=== PATIENT | male | born 1990 | race Caucasian/White ===

== ENCOUNTER 2018-06-18 17:21 | Inpatient (IN) | payer OTHER, MEDICAID ==
[2018-06-18] MEDS ORDERED: Sodium Chloride 0.9% 1,000 ML IV STA (17:43)
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
[2018-06-18 18:13] LABS: BASO # 0.07 K/mm3 (0.0-2.0); BASO % 1.1 % (0.0-3.0); EOS # 0.1 (0.0-0.7); EOS % 1.6 % (1.5-5.0); GRAN # 4.01 (1.4-6.5); GRAN % 64.2 % (50.0-68.0); HEMOGLOBIN 13.5 g/dL (14.0-18.0); LYMPH # 1.6 (1.2-3.4); LYMPH % 25.9 % (22.0-35.0); MEAN CELL VOLUME 88.2 fl (80.0-105.0); MEAN CORPUSCULAR HEMOGLOBIN 29.6 pg (25.0-35.0); MEAN CORPUSCULAR HGB CONC 33.6 g/dl (31.0-37.0); MEAN PLATELET VOLUME 9.4 fl (7.0-11.0); MONO # 0.5 (0.1-0.6); MONO % 7.2 % (1.0-6.0); RBC 4.56 10^6/uL (3.5-6.1); RED CELL DISTRIBUTION WIDTH 13.6 % (11.5-14.5); WHITE BLOOD COUNT 6.3 10^3/uL (4.5-11.0)
[2018-06-18 18:27] LABS: ALB/GLOB RATIO 1.6 (1.1-1.8); ALBUMIN 4.4 g/dL (3.0-4.8); ALT/SGPT 26 U/L (7-56); AST/SGOT 27 U/L (17-59); BLOOD UREA NITROGEN 8 mg/dL (7-21); CALCIUM 8.8 mg/dL (8.4-10.5); GFR NON-AFRICAN AMERICAN > 60
[2018-06-18 18:28] LABS: ACETAMINOPHEN < 10.0 ug/ml (10.0-20.0); SALICYLATE < 1 mg/dL (2.0-20.0)
--- NOTE | 2018-06-18 19:23 | ED PDOC ---
Physical Exam Vital Signs Reviewed: Yes Vital Signs Temp Pulse Resp BP Pulse Ox 06/18/18 17:30 98.5 F 97 H 16 137/69 99 Temperature: Afebrile Blood Pressure: Normal Pulse: Tachycardic Respiratory Rate: Normal Appearance: Positive for: Well-Appearing, Non-Toxic, Comfortable Pain Distress: None Mental Status: Positive for: Alert and Oriented X 3 Medical Decision Making ED Course and Treatment: 06/18/18 19:13: Case endorsed to me by Dr. Giron. Patient presents to the emergency department for further evaluation s/p overdose. Pending CT and X-Ray, reassessment and disposition. EXAM: CT Head without Intravenous Contrast. Electronically signed on Jun 18, 2018 8:56:37 PM EST by: Marcelo Torrez M.D., IMPRESSION: No acute intracranial abnormality. 06/18/18 23:21 Patient was medically cleared seen and evaluated by FRANSISCO Mosquera.Following evaluation patient was accepted for admission to the psychiatric floor by . - Lab Interpretations Lab Results: 06/18/18 18:00 06/18/18 18:00 Lab Results 06/18/18 18:00: Alcohol, Quantitative < 10 06/18/18 18:00: Salicylates < 1 L, Acetaminophen < 10.0 L 06/18/18 18:00: Sodium 141, Potassium 3.9, Chloride 105, Carbon Dioxide 28, Anion Gap 12, BUN 8, Creatinine 0.9, Est GFR ( Amer) > 60, Est GFR (Non- Af Amer) > 60, Random Glucose 104, Calcium 8.8, Magnesium 2.0, Total Bilirubin 0.7, AST 27, ALT 26, Alkaline Phosphatase 53, Total Protein 7.2, Albumin 4.4, Globulin 2.8, Albumin/Globulin Ratio 1.6 06/18/18 18:00: WBC 6.3, RBC 4.56, Hgb 13.5 L, Hct 40.2 L, MCV 88.2, MCH 29.6, MCHC 33.6, RDW 13.6, Plt Count 276, MPV 9.4, Gran % 64.2, Lymph % (Auto) 25.9, [place] % (Auto) 7.2 H, Eos % (Auto) 1.6, Baso % (Auto) 1.1, Gran # 4.01, Lymph # (Auto) 1.6, [place] # (Auto) 0.5, Eos # (Auto) 0.1, Baso # (Auto) 0.07 06/18/18 18:00: Valproic Acid < 10 L - RAD Interpretation Radiology Orders: 06/18/18 17:42 HEAD W/O CONTRAST [CT] Stat LS SPINE AP/LAT [RAD] Stat - Medication Orders Current Medication Orders: Discontinued Medications Sodium Chloride (Sodium Chloride 0.9%) 1,000 mls @ 999 mls/hr IV .Q1H1M STA Stop: 06/18/18 18:43 Last Admin: 06/18/18 18:25 Dose: 999 mls/hr eMAR Start Stop Document 06/18/18 18:25 SRE (Rec: 06/18/18 18:25 SRE [id number]) Intravenous Solution Start Date 06/18/18 Start Time 18:25 End Date 06/18/18 End time 19:25 Total Infusion Time 60 Ondansetron HCl (Zofran Inj) 4 mg IVP STAT STA Stop: 06/18/18 17:44 Last Admin: 06/18/18 18:26 Dose: 4 mg IVP Administration Document 06/18/18 18:26 SRE (Rec: 06/18/18 18:26 SRE [id number]) Charges for Administration # of IVP Administrations 1 - Scribe Statement The provider has reviewed the documentation as recorded by the Sherriibe Alesha Mcallister Provider Scribe Attestation: All medical record entries made by the Scribe were at my direction and personally dictated by me. I have reviewed the chart and agree that the record accurately reflects my personal performance of the history, physical exam, medical decision making, and the department course for this patient. I have also personally directed, reviewed, and agree with the discharge instructions and disposition. Disposition/Present on Arrival - Present on Arrival Any Indicators Present on Arrival: No History of DVT/PE: No History of Uncontrolled Diabetes: No Urinary Catheter: No History of Decub. Ulcer: No History Surgical Site Infection Following: None - Disposition Have Diagnosis and Disposition been Completed?: Yes Diagnosis: Schizophrenia, Opiate abuse, continuous Disposition: HOSPITALIZED Disposition Time: 23:21 Patient Plan: Admission Condition: STABLE Forms: [employer] (Georgian)
[2018-06-18 22:04] LABS: PH,URINE 7.5 (4.7-8.0); URINE BILIRUBIN NEGATIVE (NEGATIVE); URINE BLOOD NEGATIVE (NEGATIVE); URINE GLUCOSE (UA) NEGATIVE (NEGATIVE); URINE LEUKOCYTE ESTERASE NEGATIVE Leu/uL (NEGATIVE); URINE PROTEIN NEGATIVE mg/dL (<30 mg/dL); URINE UROBILINOGEN 0.2 E.U./dL (<1 E.U./dL)
[2018-06-18 22:15] LABS: URINE APPEARANCE CLEAR (CLEAR); URINE COLOR YELLOW (YELLOW)
[2018-06-18 22:34] LABS: BARBITURATES, UR NEGATIVE (NEGATIVE); BENZODIAZEPINES, UR NEGATIVE (NEGATIVE); OPIATES, UR POSITIVE (NEGATIVE); PHENCYCLIDINE, UR NEGATIVE (NEGATIVE)
--- NOTE | 2018-06-19 00:14 | CARD ---
APPROVED REPORT Date of service: 06/18/2018 EKG Measurement Heart [id number] <Conclusion> Normal sinus rhythm Normal Electrocardiogram
[2018-06-19] MEDS ORDERED: Alum-Mag Hydrox-Simethicone Susp (30 mL) PO PRN (01:41)
[2018-06-19] MEDS ORDERED: Magnesium Hydroxide Susp 30 ml UD PO PRN (01:41)
[2018-06-19 02:18] VITALS: O2SAT 99
--- NOTE | 2018-06-19 02:53 | PCM.BM ---
<Ivan Castillo - Last Filed: 06/19/18 02:51> Treatment Plan Problems - Problems identified on initial assessmt Hopelessness/Helplessness Date Initiated: 06/19/18 Time Initiated: 02:52 Assessment reference: NA Status: Active Feelings of Worthlessness Date Initiated: 06/19/18 Time Initiated: 02:52 Assessment reference: NA Status: Active Ineffective Coping Date Initiated: 06/19/18 Time Initiated: 02:52 Assessment reference: NA Status: Active Medication Nonadherence Date Initiated: 06/19/18 Time Initiated: 02:52 Assessment reference: NA Status: Active Treatment assets and liabiliti Patient Assests: cooperative, self-reliant, ADL independent, physically healthy, good support system, negotiates basic needs, cognitively intact Patient Liabilities: financial problems, poor support system, relationship conflicts, substance abuse - Milieu Protocol Maintain good personal hygiene: daily Encourage regular showers, daily Remind patient to perform daily oral care, daily Assist patient to perform ADL's Conduct patient checks and document Observation sheet: Q15 minutes Maintain personal safety: every shift Educate patient to report safety concerns to staff, every shift Monitor environment for contraband/sharps Medication safety: Monitor for expected outcome, potential side effects: every shift, Assess barriers to learning: every shift, Assess readiness for medication education: every shift Discharge/Continuing Care - Education Needs Education Needs: Patient Medication, Patient Diagnosis/Disease Process, Patient Coping Skills, Patient Community resources, Patient Activities of Daily Living, Patient Nutrition, Patient Health Practices/Safety, Patient Personal Hygiene/Grooming, Patient Aftercare Safety Plan - Discharge Discharge Criteria: Tolerates medication w/o severe side effects, Free of Suicidal thoughts, Normal sleep pattern, Ability to care for self, No longer exhibiting s/s of withdrawal, Reduction of target symptoms <aLtosha Ambrosio - Last Filed: 06/19/18 14:09> - Diagnosis (1) Opiate abuse, continuous Status: Acute Interventions: 06/19/18 14:09 Monitoring withdrawal symptoms Medical detoxification Pharmacotherapy for alcohol/benzos/opioid dependence Maintaining sobriety Relapse prevention Possible rehabilitation Motivational interviewing 12-step programs: AA meetings (2) Schizophrenia Status: Acute Interventions: 06/19/18 14:09 Psychoeducation/psychotherapy Psychopharmacology/adjustment of medications as needed/ monitoring possible side effects Evaluate pt on daily basis Compliance with medications and follow up appointments Long acting medication if pt is noncompliant with pill form Suicide and homicide risk assessment and prevention, coping strategies, safety plan Relapse prevention Reduction of symptoms Improve functional status Possible assertive community treatment Cognitive behavioral therapy Family involvement Possible social skill training as outpatient
[2018-06-19 08:05] LABS: GLUCOSE,FASTING 94 mg/dL (65-110); HDL CHOLESTEROL 46 mg/dL (29-60)
[2018-06-19 08:15] LABS: LDL CHOLESTEROL 63 mg/dL (0-129)
--- NOTE | 2018-06-19 09:38 | RAD ---
Date of service: 06/19/2018 HISTORY: pysch COMPARISON: No prior. FINDINGS: LUNGS: No active pulmonary disease. PLEURA: No significant pleural effusion identified, no pneumothorax apparent. CARDIOVASCULAR: No aortic atherosclerotic calcification present. Normal cardiac size. No pulmonary vascular congestion. OSSEOUS STRUCTURES: No significant abnormalities. VISUALIZED UPPER ABDOMEN: Normal. OTHER FINDINGS: None. IMPRESSION: No active disease.
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
--- NOTE | 2018-06-19 14:09 | PCM.PSYCH ---
Initial Psychiatric Evaluation - Initial Psychiatric Evaluation Type of Admission: Voluntary Legal Status: Capacity (Patient has capacity to consent for treatment) Chief Complaint (in patient's own words): "I was very depressed, I am hearing my mothers voices, she told me that I need to find a job, I came here because of [place]..." Patient's Reaction to Hospitalization: Patient was admitted to the psychiatric inpatient evaluation and stabilization of possible depressive symptoms, questionable overdose on opioids, possible psychosis History of Present Illness and Precipitating Events: Shortly pt is a 27 y/o [place] Male, unemployed, lives with mother, pt was transported to ED via EMS and [place] [employer], as per report pt was found unconscious after he OD on opioid, pt has one psych admission at [facility] over this summer, pt was diagnosed with schizophrenia. pt most likely was noncompliant with meds, patient evaluation and stabilization and medication adjustments. Patient was seen today at the treatment team meeting, patient presented to have poor personal hygiene, has long/wavy/uncombed hair, patient appears to be unkempt, not shaved, has long/ nails, very thin build, multiple tattoos on upper extremities, but patient is not malodorous. Fair ADLs. Patient presented to be withdrawn, flat affect, thought blocking, patient presented to be weird/odd, possible negative symptoms of schizophrenia cannot be excluded. Patient presented with some psychomotor retardation, difficulties to express himself, patient reported that he was feeling depressed, hopeless and helpless, patient denied any thoughts of harming himself or others, but this production underwriter not sure if pt intentionally overdosed on heroin. pt seems to be an unreliable historian, patient reported that he hears his mother voices in his head, "it is positive voices, she is telling me to find a job". Patient denied history of command type hallucinations, patient presented to be guarded and mildly paranoid. Patient reported that he snorted heroin only once prior to come to the hospital, denied using any substances, denies smoking, denied using any illicit drugs, denied using alcohol. Patient denied being abused, denied physical/emotional/sexual abuse. Past psychiatric history: Patient was admitted at [facility] in December 2017, patient presented to be psychotic, with bizarre behavior, patient was diagnosed with schizophrenia, patient had disorganized behavior for example patient had given away all of his clothing to [employer], removed the doors on his room, presented to be psychotic talking to himself, responding to internal stimuli. Patient was stabilized on Prolixin, trazodone, Depakote and Cogentin. Patient denied history of suicidal attempts in the past, contracted for safety. Medical history: As per history patient has vitamin D deficiency, patient appears to be malnourished, very thin build. Family history: Patient denies any family history of mental illness. Social history: Patient does not work, self isolating, quit college. 06/18/18 18:00 06/18/18 18:00 Lab Results 06/19/18 07:30: TSH 3rd Generation 2.41 06/19/18 07:30: Fasting Glucose 94, Triglycerides 105, Cholesterol 120 L, LDL Cholesterol Direct 63, HDL Cholesterol 46 06/18/18 21:53: Urine Opiates Screen Positive H, Urine Methadone Screen Negative, Ur Barbiturates Screen Negative, Ur Phencyclidine Scrn Negative, Ur Amphetamines Screen Negative, U Benzodiazepines Scrn Negative, U Oth Cocaine Metabols Negative, U Cannabinoids Screen Positive H 06/18/18 21:53: Urine Color Yellow, Urine Appearance Clear, Urine pH 7.5, Ur Specific Delta 1.015, Urine Protein Negative, Urine Glucose (UA) Negative, Urine Ketones Negative, Urine Blood Negative, Urine Nitrate Negative, Urine Bilirubin Negative, Urine Urobilinogen 0.2, Ur Leukocyte Esterase Negative 06/18/18 18:00: Alcohol, Quantitative < 10 06/18/18 18:00: Salicylates < 1 L, Acetaminophen < 10.0 L 06/18/18 18:00: Sodium 141, Potassium 3.9, Chloride 105, Carbon Dioxide 28, Anion Gap 12, BUN 8, Creatinine 0.9, Est GFR ( Amer) > 60, Est GFR (Non- Af Amer) > 60, Random Glucose 104, Calcium 8.8, Magnesium 2.0, Total Bilirubin 0.7, AST 27, ALT 26, Alkaline Phosphatase 53, Total Protein 7.2, Albumin 4.4, Globulin 2.8, Albumin/Globulin Ratio 1.6 06/18/18 18:00: WBC 6.3, RBC 4.56, Hgb 13.5 L, Hct 40.2 L, MCV 88.2, MCH 29.6, MCHC 33.6, RDW 13.6, Plt Count 276, MPV 9.4, Gran % 64.2, Lymph % (Auto) 25.9, Bracken % (Auto) 7.2 H, Eos % (Auto) 1.6, Baso % (Auto) 1.1, Gran # 4.01, Lymph # (Auto) 1.6, Bracken # (Auto) 0.5, Eos # (Auto) 0.1, Baso # (Auto) 0.07 06/18/18 18:00: Valproic Acid < 10 L Vital Signs Temp Pulse Resp BP Pulse Ox 06/19/18 07:10 98.0 F 92 H 20 108/58 L 06/19/18 01:20 97.4 F L 61 18 129/79 99 06/18/18 21:33 80 18 124/74 96 06/18/18 17:30 98.5 F 97 H 16 137/69 99 The patient failed the outpatient lower level of care: Yes Current Medications: Active Medications Generic Name Dose Route Start Last Admin Trade Name Freq PRN Reason Stop Dose Admin Acetaminophen 650 mg 06/19/18 01:41 Tylenol 325mg Tab PO Q6H PRN Fever >100.4 F Al Hydrox/Mg Hydrox/Simethicone 30 ml 06/19/18 01:41 Maalox Plus 30 Ml PO DAILY PRN Upset Stomach Clonidine HCl 0.1 mg 06/19/18 02:01 Catapres PO Q12 PRN opiate withdrawals Magnesium Hydroxide 30 ml 06/19/18 01:41 Milk Of Magnesia PO DAILY PRN Constipation Paroxetine HCl 10 mg 06/19/18 22:00 Paxil PO HS [facility] Risperidone 0.5 mg 06/19/18 22:00 Risperdal Tab PO HS [facility] Protocol Zaleplon 10 mg 06/19/18 01:46 Sonata PO HS PRN Insomnia Present on Admission - Present on Admission Any Indicators Present on Admission: No Review of Systems - Review of Systems Systems not reviewed;Unavailable: Acuity of Condition - Constitutional Constitutional: As Per HPI - EENT Eyes: As Per HPI Ears: As Per HPI Nose/Mouth/Throat: As Per HPI - Cardiovascular Cardiovascular: As Per HPI - Respiratory Respiratory: As Per HPI - Gastrointestinal Gastrointestinal: As Per HPI - Genitourinary Genitourinary: As Per HPI - Reproductive: Male Reproductive:Male: As Per HPI - Musculoskeletal Musculoskeletal: As Per HPI - Integumentary Integumentary: As Per HPI - Neurological Neurological: As Per HPI - Psychiatric Psychiatric: As Per HPI - Endocrine Endocrine: As Per HPI - Hematologic/Lymphatic Hematologic: As Per HPI Past Patient History - Past Psychiatric History Previous Treatment History: Inpatient Prior Professional Help: See HPI Prior Psychiatric Treatment: See HPI At what hospital: See HPI Duration: See HPI Nature of Treatment: See HPI Explanation of prior treatment: See HPI - PSYCHIATRIC Hx Substance Use: Yes - Infectious Disease Hx of Infectious Diseases: None - CARDIAC Hx Cardiac Disorders: No Hx Hypertension: Yes (mother suffers from HBP) - PULMONARY Hx Tuberculosis: No - NEUROLOGICAL HX Cerebrovascular Accident: No Hx Seizures: No - HEENT Hx HEENT Problems: No - RENAL Hx Chronic Kidney Disease: No - ENDOCRINE/METABOLIC Hx Endocrine Disorders: No - HEMATOLOGICAL/ONCOLOGICAL Hx Cancer: No Hx Human Immunodeficiency Virus (HIV): No - INTEGUMENTARY Hx Dermatological Problems: No - MUSCULOSKELETAL/RHEUMATOLOGICAL Hx Musculoskeletal Disorders: No - GASTROINTESTINAL Hx Gastrointestinal Disorders: No - GENITOURINARY/GYNECOLOGICAL Hx Sexually Transmitted Disorders: No - SURGICAL HISTORY Hx Surgeries: No - ANESTHESIA Hx Anesthesia: No - Medical/Surgical History Reviewed & confirmed: by sc Meds Allergies/Adverse Reactions: Allergies Allergy/AdvReac Type Severity Reaction Status Date / Time No Known Allergies Allergy Verified 06/19/18 02:18 Mental Status Examination - Personal Presentation Personal Presentation: Looks stated age - Affect Affect: Constricted - Motor Activity Motor Activity: Psychomotor Retardation - Reliability in Providing Information Reliability in Providing Information: Poor, due to alteration in thoughts, Poor, due to altered mood, Poor, due to cognitve impairment - Speech Speech: Disorganized - Mood Mood: Depressed - Formal Thought Process Formal Thought Process: Hallucinations, Other (Thought blocking) - Hallucinations/Delusions Hallucinations: Auditory - Obsessions/Compulsions Obsessions: None Compulsions: None - Cognitive Functions Orientation: Person, Place, Situation Sensorium: Alert Attention/Concentration: Easily distracted Abstract Thinking: [place] Estimate of Intelligence: Average Judgement: Intact, as evidence by: Insight regarding need for hospitalization - Risk Risk: Self-mutilation, Diminished functioning - Strength & Assets Inventory Strength & Assets Inventory: Family support, Cooperative - Limitations Limitations: Other (Substance abuse, psychosis, noncompliance) Psychiatric Physical Exam - Physical Exam Reviewed and confirmed: Emergency Department Physical Exam Results - Vital Signs Recent Vital Signs: Last Vital Signs Temp 98.0 F 06/19/18 07:10 Pulse 92 H 06/19/18 07:10 Resp 20 06/19/18 07:10 BP 108/58 L 06/19/18 07:10 Pulse Ox 99 06/19/18 01:20 - Labs Result Diagrams: 06/18/18 18:00 06/18/18 18:00 Labs: Laboratory Results - last 24 hr 06/18/18 06/18/18 06/18/18 18:00 18:00 18:00 WBC 6.3 RBC 4.56 Hgb 13.5 L Hct 40.2 L MCV 88.2 MCH 29.6 MCHC 33.6 RDW 13.6 Plt Count 276 MPV 9.4 Gran % 64.2 Lymph % (Auto) 25.9 Bracken % (Auto) 7.2 H Eos % (Auto) 1.6 Baso % (Auto) 1.1 Gran # 4.01 Lymph # (Auto) 1.6 Bracken # (Auto) 0.5 Eos # (Auto) 0.1 Baso # (Auto) 0.07 Sodium 141 Potassium 3.9 Chloride 105 Carbon Dioxide 28 Anion Gap 12 BUN 8 Creatinine 0.9 Est GFR ( Amer) > 60 Est GFR (Non-Af Amer) > 60 Random Glucose 104 Fasting Glucose Calcium 8.8 Magnesium 2.0 Total Bilirubin 0.7 AST 27 ALT 26 Alkaline Phosphatase 53 Total Protein 7.2 Albumin 4.4 Globulin 2.8 Albumin/Globulin Ratio 1.6 Triglycerides Cholesterol LDL Cholesterol Direct HDL Cholesterol TSH 3rd Generation Urine Color Urine Appearance Urine pH Ur Specific Delta Urine Protein Urine Glucose (UA) Urine Ketones Urine Blood Urine Nitrate Urine Bilirubin Urine Urobilinogen Ur Leukocyte Esterase Salicylates Urine Opiates Screen Urine Methadone Screen Acetaminophen Ur Barbiturates Screen Valproic Acid < 10 L Ur Phencyclidine Scrn Ur Amphetamines Screen U Benzodiazepines Scrn U Oth Cocaine Metabols U Cannabinoids Screen Alcohol, Quantitative 06/18/18 06/18/18 06/18/18 18:00 18:00 21:53 WBC RBC Hgb Hct MCV MCH MCHC RDW Plt Count MPV Gran % Lymph % (Auto) Bracken % (Auto) Eos % (Auto) Baso % (Auto) Gran # Lymph # (Auto) Bracken # (Auto) Eos # (Auto) Baso # (Auto) Sodium Potassium Chloride Carbon Dioxide Anion Gap BUN Creatinine Est GFR ( Amer) Est GFR (Non-Af Amer) Random Glucose Fasting Glucose Calcium Magnesium Total Bilirubin AST ALT Alkaline Phosphatase Total Protein Albumin Globulin Albumin/Globulin Ratio Triglycerides Cholesterol LDL Cholesterol Direct HDL Cholesterol TSH 3rd Generation Urine Color Yellow Urine Appearance Clear Urine pH 7.5 Ur Specific Delta 1.015 Urine Protein Negative Urine Glucose (UA) Negative Urine Ketones Negative Urine Blood Negative Urine Nitrate Negative Urine Bilirubin Negative Urine Urobilinogen 0.2 Ur Leukocyte Esterase Negative Salicylates < 1 L Urine Opiates Screen Urine Methadone Screen Acetaminophen < 10.0 L Ur Barbiturates Screen Valproic Acid Ur Phencyclidine Scrn Ur Amphetamines Screen U Benzodiazepines Scrn U Oth Cocaine Metabols U Cannabinoids Screen Alcohol, Quantitative < 10 06/18/18 06/19/18 06/19/18 21:53 07:30 07:30 WBC RBC Hgb Hct MCV MCH MCHC RDW Plt Count MPV Gran % Lymph % (Auto) Bracken % (Auto) Eos % (Auto) Baso % (Auto) Gran # Lymph # (Auto) Bracken # (Auto) Eos # (Auto) Baso # (Auto) Sodium Potassium Chloride Carbon Dioxide Anion Gap BUN Creatinine Est GFR ( Amer) Est GFR (Non-Af Amer) Random Glucose Fasting Glucose 94 Calcium Magnesium Total Bilirubin AST ALT Alkaline Phosphatase Total Protein Albumin Globulin Albumin/Globulin Ratio Triglycerides 105 Cholesterol 120 L LDL Cholesterol Direct 63 HDL Cholesterol 46 TSH 3rd Generation 2.41 Urine Color Urine Appearance Urine pH Ur Specific Delta Urine Protein Urine Glucose (UA) Urine Ketones Urine Blood Urine Nitrate Urine Bilirubin Urine Urobilinogen Ur Leukocyte Esterase Salicylates Urine Opiates Screen Positive H Urine Methadone Screen Negative Acetaminophen Ur Barbiturates Screen Negative Valproic Acid Ur Phencyclidine Scrn Negative Ur Amphetamines Screen Negative U Benzodiazepines Scrn Negative U Oth Cocaine Metabols Negative U Cannabinoids Screen Positive H Alcohol, Quantitative - EKG Data EKG Interpreted by: ER Physician EKG shows normal: Sinus rhythm Rate: Normal DSM Plan - DSM 5 DSM 5 Diagnosis: As per history of schizophrenia rule out schizoaffective disorder rule out opioid abuse - Recommended/Plan of Treatment Treatment Recommendations and Plan of Treatment: Milieu/structure/supportive therapy Medical consult will be called SW consultation for discharge plan and social issues Med management Risperdal 1 mg twice a day for psychosis with plan to give injectable form Cogentin 0.5 mg twice a day for EPS prevention Follow-up as needed for insomnia Paxil 10 mg at the nighttime for depression and anxiety Family involvement Follow up on labs Will monitor closely Pt was educated about risk/benefits and alternatives of medications, coping strategies (safety plan, suicide prevention), relapse prevention, importance of follow up with psychiatrist and therapist, stay away from drugs/alcohol/smoking Projected ELOS: 7 days Prognosis: Guarded Discharge Plan and Discharge Criteria: Pt will be not depressed or manic, will be more hopeful, will be not psychotic or anxious, will be not having thoughts of harming self or others, will be tolerating medications well, will not have major side effects, will be able to function, will not pose threat to self or others. - Tobacco Cessation Tobacco Use Status for the last 30 days: Non User Tobacco Use Treatment Practical Counseling Provided: No Reason for not providing: Denied smoking Tobacco Use Treatment FDA-Approved Cessation Medication Provided: No - Alcohol or Substance Abuse Does the patient have an Alcohol or Substance Abuse Disorder: Yes Initial Psych Certification - Initial Certification I certify that the inpatient psychiatric facility admission was medically necessary for either: Treatment which could reasonbly be expected to improve pt's condition I estimate of hospitalization is necessary for proper treatment of the patient: 7 Unit of Time: Days My plans for post-hospital care for this patient are: Day treatment program, dual diagnosis program.
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
--- NOTE | 2018-06-20 14:52 | PCM.PYCHPN ---
Psychiatric Progress Note - Psychiatric Progress Note Patient seen today, length of contact: 30 minutes Patient Chief Complaint: "I am fine" Problems Identified/Issues Discussed: Suicide/ homicide prevention, past psychiatric h/o, current psychiatric symptoms, medical problems, risk/benefits and alternatives of medications, medications compliance, coping strategies, substance abuse h/o, relapse prevention, importance of follow up with psychiatrist and therapist, discharge plan. Medical Problems: Patient seems to be malnourished, very thin build Diagnostic Results: 06/18/18 18:00 06/18/18 18:00 Lab Results 06/19/18 07:30: RPR Nonreactive 06/19/18 07:30: TSH 3rd Generation 2.41 06/19/18 07:30: Fasting Glucose 94, Triglycerides 105, Cholesterol 120 L, LDL Cholesterol Direct 63, HDL Cholesterol 46 06/18/18 21:53: Urine Opiates Screen Positive H, Urine Methadone Screen Negative, Ur Barbiturates Screen Negative, Ur Phencyclidine Scrn Negative, Ur Amphetamines Screen Negative, U Benzodiazepines Scrn Negative, U Oth Cocaine Metabols Negative, U Cannabinoids Screen Positive H 06/18/18 21:53: Urine Color Yellow, Urine Appearance Clear, Urine pH 7.5, Ur Specific [place] 1.015, Urine Protein Negative, Urine Glucose (UA) Negative, Urine Ketones Negative, Urine Blood Negative, Urine Nitrate Negative, Urine Bilirubin Negative, Urine Urobilinogen 0.2, Ur Leukocyte Esterase Negative 06/18/18 18:00: Alcohol, Quantitative < 10 06/18/18 18:00: Salicylates < 1 L, Acetaminophen < 10.0 L 06/18/18 18:00: Sodium 141, Potassium 3.9, Chloride 105, Carbon Dioxide 28, Anion Gap 12, BUN 8, Creatinine 0.9, Est GFR ( Amer) > 60, Est GFR (Non- Af Amer) > 60, Random Glucose 104, Calcium 8.8, Magnesium 2.0, Total Bilirubin 0.7, AST 27, ALT 26, Alkaline Phosphatase 53, Total Protein 7.2, Albumin 4.4, Globulin 2.8, Albumin/Globulin Ratio 1.6 06/18/18 18:00: WBC 6.3, RBC 4.56, Hgb 13.5 L, Hct 40.2 L, MCV 88.2, MCH 29.6, MCHC 33.6, RDW 13.6, Plt Count 276, MPV 9.4, Gran % 64.2, Lymph % (Auto) 25.9, [place] % (Auto) 7.2 H, Eos % (Auto) 1.6, Baso % (Auto) 1.1, Gran # 4.01, Lymph # (Auto) 1.6, [place] # (Auto) 0.5, Eos # (Auto) 0.1, Baso # (Auto) 0.07 06/18/18 18:00: Valproic Acid < 10 L Vital Signs Temp Pulse Resp BP Pulse Ox 06/20/18 07:26 98.4 F 54 L 16 94/54 L 06/19/18 16:00 58 L 93/48 L 06/19/18 07:10 98.0 F 92 H 20 108/58 L 06/19/18 01:20 97.4 F L 61 18 129/79 99 06/18/18 21:33 80 18 124/74 96 06/18/18 17:30 98.5 F 97 H 16 137/69 99 DSM 5 Symptoms Update: Shortly pt is a 27 y/o Male, unemployed, lives with mother, pt was transported to ED via EMS and [place] [employer], as per report pt was found unconscious after he OD on opioid, pt has one psych admission at [facility] over this summer, pt was diagnosed with schizophrenia. pt most likely was noncompliant with meds, patient evaluation and stabilization and medication adjustments. Patient was seen today at the treatment team meeting, patient presented to have poor personal hygiene, has long/wavy/uncombed hair, patient appears to be unkempt, not shaved, has long/ nails, very thin build, multiple tattoos on upper extremities, but patient is not malodorous. Fair ADLs. Patient presented to be withdrawn, flat affect, thought blocking, patient presented to be weird/odd, possible negative symptoms of schizophrenia cannot be excluded. Patient presented with some psychomotor retardation, difficulties to express himself, patient reported that he was feeling depressed, hopeless and h elpless, patient denied any thoughts of harming himself or others, but this health underwriter not sure if pt intentionally overdosed on heroin. pt seems to be an unreliable historian, patient reported that he hears his mother voices in his head, "it is positive voices, she is telling me to find a job". Patient denied history of command type hallucinations, patient presented to be guarded and mildly paranoid. Patient reported that he snorted heroin only once prior to come to the hospital, denied using any substances, denies smoking, denied using any illicit drugs, denied using alcohol. Patient denied being abused, denied physical/emotional/sexual abuse. Past psychiatric history: Patient was admitted at [facility] in December 2017, patient presented to be psychotic, with bizarre behavior, patient was diagnosed with schizophrenia, patient had disorganized behavior for example patient had given away all of his clothing to [employer], removed the doors on his room, presented to be psychotic talking to himself, responding to internal stimuli. Patient was stabilized on Prolixin, trazodone, Depakote and Cogentin. Patient denied history of suicidal attempts in the past, contracted for safety. As per staff patient is self isolating, not participating in unit activities, yesterday patient submitted 48-hour notice requesting discharge but patient presented, patient family visited him yesterday, as per staff mother does not want to take patient back home. So far patient tolerates medications well, no side effects observed or reported, aims 0, no EPS. Impression: Schizophrenia to be ruled out Opioid abuse Medication Change: Yes (Risperdal started, Paxil started) Medical Record Reviewed: Yes Consults ordered or reviewed: Medical consult appreciated please see notes for more detailed information. Mental Status Examination - Cognitive Function Orientation: Person, Place, Situation Memory: Intact Attention: Poor Concentration: Poor Association: Loose Fund of Knowledge: Poor - Mood Mood: Depressed - Affect Affect: Constricted - Formal Thought Process Formal Thought Process: Hallucinations, Other (Thought blocking) - Suicidal Ideation Suicidal Ideation: No - Homicidal Ideation Homicidal Ideation: No Goal/Treatment Plan - Goal/Treatment Plan Need for Continued Stay: Remain at risks for inpatient hospitalization, Severe depression anxiety, Discharge may exacerbated symptoms, Severe functional impairment Progress Toward Problem(s) and Goals/Treatment Plan: Milieu/structure/supportive therapy Medical consult will be called SW consultation for discharge plan and social issues Med management Risperdal 1 mg twice a day for psychosis with plan to give injectable form Cogentin 0.5 mg twice a day for EPS prevention Follow-up as needed for insomnia Paxil 10 mg at the nighttime for depression and anxiety Family involvement Follow up on labs Will monitor closely Pt was educated about risk/benefits and alternatives of medications, coping strategies (safety plan, suicide prevention), relapse prevention, importance of follow up with psychiatrist and therapist, stay away from drugs/alcohol/smoking Estimated Date of D/C: 06/27/18 - Smoking Cessation Smoking Cessation Initiated: No Reason for not providing: Patient refused
[2018-06-21 07:13] VITALS: RESP 20; TEMP 97.8
--- NOTE | 2018-06-21 09:26 | PCM.PYCHPN ---
Psychiatric Progress Note - Psychiatric Progress Note Patient seen today, length of contact: 30 minutes Problems Identified/Issues Discussed: I reviewed assessment and recent notes on the unit. Patient is an unemployed 27 y/o [place] Male, residing with his mother, diagnosed with Schizophrenia during his one prior psychiatric admission this past summer at [facility] who was transported to ED via EMS and [place] [employer] after he was found unconscious s/p OD on opiates, I met with patient at bedside. He is quiet with flat affect. Oriented to month, year and location. He is not engaged and offers only brief responses to my questions. Eye contact is poor and patient flatly states that his mood is good. He denies experiencing any hallucinations this morning. Tolerating medications and doesn't appear to be in any physical discomfort. He denies any new concerns in this respect. Patient appears preoccupied, distracted and blunt however he isn't responding to internal stimuli. His appearance and interactions are odd. Psychotic symptoms are mostly negative, he hasn't demonstrated any overtly bizarre or aggressive behaviors. He generally keeps to himself on the unit with minimal socializing. Diagnostic Results: Schizophrenia to be ruled out Opioid abuse Medication Change: Yes (Risperdal started, Paxil started) Medical Record Reviewed: Yes Mental Status Examination - Cognitive Function Orientation: Person, Place, Situation Memory: Intact Attention: Poor Concentration: Poor Association: Loose Fund of Knowledge: Poor - Mood Mood: Depressed - Affect Affect: Constricted, Flat - Speech Speech: Soft - Formal Thought Process Formal Thought Process: Hallucinations (denied but he is clearly preoccupied and guarded), Other (Thought blocking) - Suicidal Ideation Suicidal Ideation: No - Homicidal Ideation Homicidal Ideation: No Goal/Treatment Plan - Goal/Treatment Plan Need for Continued Stay: Remain at risks for inpatient hospitalization, Severe depression anxiety, Discharge may exacerbated symptoms, Severe functional impairment Progress Toward Problem(s) and Goals/Treatment Plan: * c/w current tx and plan * Vitals reviewed and noted below: Selected Entries 06/20/18 06/20/18 07:26 16:00 Temperature 98.4 F Pulse Rate 54 L 58 L Respiratory 16 Rate Blood Pressure 94/54 L 105/55 L Estimated Date of D/C: 06/27/18
[2018-06-21 16:07] VITALS: BP 90/59; PULSE 67
--- NOTE | 2018-06-21 16:52 | PCM.RRT ---
<Andra Berg - Last Filed: 06/21/18 16:45> COMMUNITY AFFAIRS MANAGER Nurse Assessment - Situation Date: 06/21/18 Time COMMUNITY AFFAIRS MANAGER was called: 16:30 COMMUNITY AFFAIRS MANAGER Responder Arrival Time: 16:30 COMMUNITY AFFAIRS MANAGER Location:: Psychiatry Unit COMMUNITY AFFAIRS MANAGER Reason for Call: Change in Mental Status COMMUNITY AFFAIRS MANAGER Called By: RN - IV IV Inserted during COMMUNITY AFFAIRS MANAGER?: No - Respiratory Oxygen Delivery Method: Nasal Cannula @L/min (2L) - Medication Medications Administered During COMMUNITY AFFAIRS MANAGER: Lorazepam 2 mg IM right superior outer gluteal region CPR started during COMMUNITY AFFAIRS MANAGER?: No I.Reason for COMMUNITY AFFAIRS MANAGER - A) Acute Change in Patient: (Select all that apply): Staff member or family is worried about patient, Acute change in mental status - Neurological Status (Select all that apply): Confused - Respiratory Oxygen Delivery Method: Nasal Cannula @L/min (2 L) - Constitutional Additional Comments: non-responsive - Head Head Exam: ATRAUMATIC, NORMOCEPHALIC - Eyes Additional Comments: miotic pupils - Respiratory Exam Respiratory Exam: Clear to Ausculation Bilateral, NORMAL BREATHING PATTERN. absent: Accessory Muscle Use - Cardiovascular Exam Cardiovascular Exam: Tachycardia, +S1, +S2 - GI/Abdominal Exam GI & Abdominal Exam: Soft, Normal Bowel Sounds. absent: Guarding, Rebound - Neurological Exam Neurological Exam: Altered Plan - Assessment of Findings&Treatment Plan 27 year old male with a past medical history of heroin abuse and most recent admission for heroin overdose who was found unresponsive in his room alone in the psychiatric unit with seizure like activity. Initial VS showed a HR 122, BP 80/40, SP O2 90%. Physical exam showed patient with pinpoint pupils bounding carotid pulses and unresponsive mental status. Patient was placed on his side and was unresponsive to sternal rub. Stretcher was called for and patient was placed on equipment monitor phototypesetting which showed sinus tachcardia. 2 mg of IM ativan was called for and administered while en route to ED within the hospital. Patient was accompanied by attending physician ,Dr. Mukherjee, 2 residents, 1 ICU nurse, and 1 transporter. He became lucid en route and was able to follow commands. In the ED was given Narcan for possible drug overdose given his miotic pupils and strong history of substance abuse. Case was signed out to ED doctor Sam Giron with patient is stable condition. <Geovanni Mukherjee - Last Filed: 06/22/18 12:05> Attending/Attestation - Attestation I have personally seen and examined this patient.: Yes I have fully participated in the care of the patient.: Yes I have reviewed all pertinent clinical information, including history, physical exam and plan: Yes Notes (Text): 06/22/18 12:03 attending note; Patient seen and examined during rapid response. patient is not responding. Patient has multiple involuntary jerky movements. IM Ativan given. Placed on oxygen nasal cannula. BP 164/60, HR 107, R 14 and Fingerstick was 171 patient was transferred to ER. Signed out to ER attending. Possible drug use on the psychiatric floor suspected. Further plan per PMD.
== END 2018-06-21 16:52 | disposition short-term general hospital (02) | DRG 885 ==
LOC: ED 17:21 → ERH 23:25 → PSYC 06-19 01:25
PROVIDERS: ADMIT Psychologist; ATTEND Psychiatry & Neurology Psychiatry
DX: F20.9 Schizophrenia, unspecified (principal); F11.10 Opioid abuse, uncomplicated; F32.9 Major depressive disorder, single episode, unspecified; F41.9 Anxiety disorder, unspecified; I10 Essential (primary) hypertension; E55.9 Vitamin D deficiency, unspecified; Z82.49 Family history of ischemic heart disease and other diseases of the circulatory system; Z91.14 Patient's other noncompliance with medication regimen

== ENCOUNTER 2018-06-21 16:30 | Inpatient (IN) | payer OTHER, MEDICAID ==
[2018-06-21] MEDS ORDERED: Naloxone 0.4 mg/ml Inj (Adult) IVP STA (16:35)
[2018-06-21 16:43] VITALS: RESP 18
[2018-06-21 16:47] LABS: BASO # 0.1 K/mm3 (0.0-2.0); EOS # 0.2 (0.0-0.7); EOS % 2.4 % (1.5-5.0); GRAN # 5.34 (1.4-6.5); GRAN % 55.5 % (50.0-68.0); HEMOGLOBIN 14.2 g/dL (14.0-18.0); LYMPH # 3.1 (1.2-3.4); LYMPH % 32.5 % (22.0-35.0); MEAN CELL VOLUME 89.3 fl (80.0-105.0); MEAN CORPUSCULAR HEMOGLOBIN 29.3 pg (25.0-35.0); MEAN CORPUSCULAR HGB CONC 32.9 g/dl (31.0-37.0); MEAN PLATELET VOLUME 9.8 fl (7.0-11.0); MONO # 0.8 (0.1-0.6); MONO % 8.6 % (1.0-6.0); RBC 4.84 10^6/uL (3.5-6.1); RED CELL DISTRIBUTION WIDTH 13.8 % (11.5-14.5); WHITE BLOOD COUNT 9.6 10^3/uL (4.5-11.0)
--- NOTE | 2018-06-21 16:49 | ED PDOC ---
Arrival/HPI - General Chief Complaint: Seizure Time Seen by Provider: 06/21/18 16:31 - History of Present Illness Narrative History of Present Illness (Text): 06/21/18 16:46 A 27 year old male, whose past medical history includes anxiety, schizophrenia, and substance abuse, presents to the emergency department for rapid response evaluation. Patient experienced a seizure-like activity upstairs on the psychiatric floor facility. Brought here to the ER for evaluation. in emergency department, pt noted with pinpoint pupils, h/o of substance abuse. Patient was given Narcan upon arrival and is currently alert and responsive. Patient me ntions no other complaints at this time. 06/21/18 18:09 Past Medical History - Provider Review Nursing Documentation Reviewed: Yes - Infectious Disease Hx of Infectious Diseases: None - Cardiac Hx Hypertension: Yes (mother suffers from HBP) - Pulmonary Hx Tuberculosis: No - Neurological Hx Seizures: No - HEENT Hx HEENT Disorder: No - Renal Hx Renal Disorder: No - Endocrine/Metabolic Hx Endocrine Disorders: No - Hematological/Oncological Hx Cancer: No - Integumentary Hx Dermatological Disorder: No - Musculoskeletal/Rheumatological Hx Musculoskeletal Disorders: No - Gastrointestinal Hx Gastrointestinal Disorders: No - Genitourinary/Gynecological Hx Sexually Transmitted Diseases: No - Psychiatric Hx Depression: Yes (hx of suicidal ideation) Hx Schizophrenia: Yes Hx Substance Use: Yes - Anesthesia Hx Anesthesia: No Family/Social History - Physician Review Nursing Documentation Reviewed: Yes Family/Social History: No Known Family HX Smoking Status: Light Smoker < 10 Cigarettes Daily Hx Alcohol Use: No Hx Substance Use: Yes Substance used: heroin Allergies/Home Meds Allergies/Adverse Reactions: Allergies No Known Allergies Allergy (Verified 06/21/18 16:43) Home Medications: Home Meds Medication Instructions Recorded Confirmed RX: risperiDONE [RisperDAL Tab] 2 mg PO HS PRN 06/18/18 06/19/18 Review of Systems - Physician Review All systems were reviewed & negative as marked: Yes - Review of Systems Constitutional: absent: Fevers, Night Sweats Respiratory: absent: SOB, Cough Cardiovascular: absent: Chest Pain Gastrointestinal: absent: Abdominal Pain, Diarrhea, Nausea, Vomiting Neurological: Seizure. absent: Headache, Dizziness Physical Exam Vital Signs Reviewed: Yes Vital Signs Temp Pulse Resp BP Pulse Ox 06/21/18 16:31 98.2 F 128 H 18 127/80 98 Temperature: Afebrile Blood Pressure: Normal Pulse: Regular Respiratory Rate: Normal Appearance: Positive for: Well-Appearing, Non-Toxic, Comfortable Pain Distress: None Mental Status: Positive for: other (mildly somnolent, alert and responsive after Narcan given [employer] to ER.) - Systems Exam Head: Present: Atraumatic, Normocephalic Pupils: Present: Pinpoint Extroacular Muscles: Present: EOMI Conjunctiva: Present: Normal Mouth: Present: Moist Mucous Membranes Neck: Present: Normal Range of Motion Respiratory/Chest: Present: Clear to Auscultation, Good Air Exchange. No: Respiratory Distress, Accessory Muscle Use Cardiovascular: Present: Regular Rate and Rhythm, Normal S1, S2. No: Murmurs Abdomen: No: Tenderness, Distention, Peritoneal Signs Back: Present: Normal Inspection Upper Extremity: Present: Normal Inspection. No: Cyanosis, Edema Lower Extremity: Present: Normal Inspection. No: Edema Neurological: Present: GCS=15, CN II-XII Intact, Speech Normal Skin: Present: Warm, Dry, Normal Color. No: Rashes Psychiatric: Present: Alert, Oriented x 3, Normal Insight, Normal Concentration Medical Decision Making ED Course and Treatment: 06/21/18 16:48 Impression: 27 year old male brought into the ER for evaluation of rapid response after having seizure-like activity upstairs on the psychiatric floor facility. ?seizurre vs substance abuse Plan: -- EKG -- Labs -- Chest X-ray -- Head CT -- Narcan -- Urinalysis -- Reassess and disposition Progress Notes: EKG: Ordered, reviewed, and independently interpreted the EKG. Rate : 106 BPM Rhythm : Sinus tachycardia. Interpretation : No ST-segment elevations or depressions, no T-wave inversions, normal intervals. Comparison : No previous EKG for comparison. 06/21/18 18:10 upon narcan, pt awake alert, now admits to "using dope". labs ct neg. will admit medically for ?seizure observeration. - RAD Interpretation Radiology Orders: 06/21/18 16:32 CHEST PORTABLE [RAD] Stat 06/21/18 16:36 HEAD W/O CONTRAST [CT] Stat - Medication Orders Current Medication Orders: Discontinued Medications Naloxone HCl (Narcan) 0.4 mg IVP STAT STA Stop: 06/21/18 16:36 - Scribe Statement The provider has reviewed the documentation as recorded by the Alycia Johnson Provider Scribe Attestation: All medical record entries made by the Alycia were at my direction and personally dictated by me. I have reviewed the chart and agree that the record accurately reflects my personal performance of the history, physical exam, medical decision making, and the department course for this patient. I have also personally directed, reviewed, and agree with the discharge instructions and disposition. Disposition/Present on Arrival - Present on Arrival Any Indicators Present on Arrival: No History of DVT/PE: No History of Uncontrolled Diabetes: No Urinary Catheter: No History of Decub. Ulcer: No History Surgical Site Infection Following: None - Disposition Have Diagnosis and Disposition been Completed?: Yes Diagnosis: Overdose, Seizure Disposition: HOSPITALIZED Disposition Time: 17:30 Patient Problems: Current Active Problems Problem Status Onset Opiate abuse, continuous Acute Schizophrenia Acute Condition: STABLE Forms: PEMRED (Setswana)
[2018-06-21 17:03] LABS: ACETAMINOPHEN < 10.0 ug/ml (10.0-20.0); PARTIAL THROMBOPLASTIN TIME 33.4 Seconds (25.1-36.5); PROTHROMBIN TIME 11.4 SECONDS (9.4-12.5); SALICYLATE < 1 mg/dL (2.0-20.0)
[2018-06-21 17:11] LABS: TROPONIN I < 0.01 ng/mL
[2018-06-21 17:17] LABS: ALB/GLOB RATIO 1.4 (1.1-1.8); ALBUMIN 4.6 g/dL (3.0-4.8); ALT/SGPT 17 U/L (7-56); AST/SGOT 39 U/L (17-59); BLOOD UREA NITROGEN 15 mg/dL (7-21); CALCIUM 9.4 mg/dL (8.4-10.5); GFR NON-AFRICAN AMERICAN > 60
--- NOTE | 2018-06-21 17:57 | CT ---
Date of service: 06/21/2018 PROCEDURE: CT HEAD WITHOUT CONTRAST. HISTORY: seizure COMPARISON: 06/18/2018. TECHNIQUE: Axial computed tomography images were obtained through the head/brain without intravenous contrast. Radiation dose: Total exam DLP = 794.21 mGy-cm. This CT exam was performed using one or more of the following dose reduction techniques: Automated exposure control, adjustment of the mA and/or kV according to patient size, and/or use of iterative reconstruction technique. FINDINGS: HEMORRHAGE: No intracranial hemorrhage. BRAIN: [place]-white matter differentiation is preserved. There is no mass, mass effect or abnormal extra-axial fluid collection. There is no territorial infarction. The midline sagittal structures are normal. VENTRICLES: The ventricles are normal in size, shape and configuration. CALVARIUM: There is no calvarial fracture or extracranial soft tissue swelling. PARANASAL SINUSES: Predominantly clear. MASTOID AIR CELLS: Predominantly clear. OTHER FINDINGS: None. IMPRESSION: No acute intracranial abnormality.
[2018-06-21 18:46] LABS: URINE BILIRUBIN NEGATIVE (NEGATIVE); URINE BLOOD NEGATIVE (NEGATIVE); URINE COLOR YELLOW (YELLOW); URINE GLUCOSE (UA) NEGATIVE (NEGATIVE); URINE LEUKOCYTE ESTERASE NEGATIVE Leu/uL (NEGATIVE); URINE PROTEIN NEGATIVE mg/dL (<30 mg/dL); URINE UROBILINOGEN 0.2 E.U./dL (<1 E.U./dL)
[2018-06-21 18:47] LABS: URINE APPEARANCE CLEAR (CLEAR)
[2018-06-21 19:14] LABS: BARBITURATES, UR NEGATIVE (NEGATIVE); BENZODIAZEPINES, UR NEGATIVE (NEGATIVE); OPIATES, UR POSITIVE (NEGATIVE); PHENCYCLIDINE, UR NEGATIVE (NEGATIVE)
--- NOTE | 2018-06-21 19:22 | CP.PCM.HP ---
<Aayush Gunderson - Last Filed: 06/21/18 20:03> History of Present Illness - History of Present Illness History of Present Illness: Aayush Gunderson, PGY1 Hospital H&P This is a 27 year old male with PMH of depression, schizophrenia and polysubstance abuse presenting to the ER s/p [employer] SCI[employer]INE[employer] for generalized tonic clonic seizures while patient was in the psych unit. Patient was initially evaluated in the hospital on 06/18/18 after being found unresponsive in the field and noted have multiples bags of heroin in his jacket. He was subsequently taken to the ED and given narcan while enroute. Since being admitted to the psych unit, there have been no reported seizures. During the [employer] today, patient noted to be unresponsive, generalized tonic clonic movements of the limbs, miotic pupils and no witnessed urinary/fecal incontinence or tongue biting. He was given 2mg ativan IM and taken to the ED where he received narcan. He then became arousable and noted to be confused with no recollection of the event. He admits to snorting two bags of heroin prior to seizure episode today while on 5B and does not admit to how he received the drugs. He denies ever having seizures in the past. He denies IV drug use. He denies CP, SOB, headaches, fevers, nausea, vomiting, back pain, abdominal pain, suicidal ideations, command hallucinations, numbness, tingling, swelling and urinary complaints. 12 point ROS noted here, otherwise unremarkable. PMD: none Psych: Dr. Resendiz (last seen 2 weeks ago) SH: admits to snorting cocaine and heroin, and smoking marijuana. Admits to drinking alcohol and smoking cigarettes recreationally. Lives at home in [place] with Mom. Has no other siblings at home. Dropped out of college due to poor grades per mother. Is not employed. Sx: denies surgeries FH: denies All: denies Meds: noncompliant, previously on trazodone and risperidone per mother Present on Admission - Present on Admission Any Indicators Present on Admission: No Past Patient History - Infectious Disease Hx of Infectious Diseases: None - Past Social History Smoking Status: Light Smoker < 10 Cigarettes Daily - CARDIAC Hx Hypertension: Yes (mother suffers from HBP) - PULMONARY Hx Tuberculosis: No - NEUROLOGICAL Hx Seizures: No - HEENT Hx HEENT Problems: No - RENAL Hx Chronic Kidney Disease: No - ENDOCRINE/METABOLIC Hx Endocrine Disorders: No - HEMATOLOGICAL/ONCOLOGICAL Hx Cancer: No - INTEGUMENTARY Hx Dermatological Problems: No - MUSCULOSKELETAL/RHEUMATOLOGICAL Hx Musculoskeletal Disorders: No - GASTROINTESTINAL Hx Gastrointestinal Disorders: No - GENITOURINARY/GYNECOLOGICAL Hx Sexually Transmitted Disorders: No - PSYCHIATRIC Hx Depression: Yes (hx of suicidal ideation) Hx Schizophrenia: Yes Hx Substance Use: Yes - SURGICAL HISTORY Hx Surgeries: No - ANESTHESIA Hx Anesthesia: No Meds Allergies/Adverse Reactions: Allergies Allergy/AdvReac Type Severity Reaction Status Date / Time No Known Allergies Allergy Verified 06/21/18 16:43 Physical Exam - Constitutional Appears: No Acute Distress, Cachectic - Head Exam Head Exam: ATRAUMATIC, NORMAL INSPECTION - Eye Exam Eye Exam: EOMI Pupil Exam: PERRL Additional comments: sluggish miotic pupils - ENT Exam ENT Exam: Mucous Membranes Moist - Neck Exam Neck exam: Positive for: Normal Inspection - Respiratory Exam Respiratory Exam: Clear to Auscultation Bilateral. absent: Accessory Muscle Use, Wheezes, Respiratory Distress - Cardiovascular Exam Cardiovascular Exam: Tachycardia, +S1, +S2 - GI/Abdominal Exam GI & Abdominal Exam: Normal Bowel Sounds, Soft. absent: Distended, Firm, Guarding, Tenderness - Extremities Exam Extremities exam: Positive for: normal inspection, pedal pulses present. Negative for: calf tenderness, tenderness Additional comments: dry ezcematous circular lesion 1cm x 1cm on left patella - Back Exam Back exam: NORMAL INSPECTION - Neurological Exam Neurological exam: Alert, CN II-XII Intact Additional comments: alert to person and place, not time - Psychiatric Exam Additional comments: denies Suicidal ideation and homocidal ideation. Denies command hallucinations - Skin Skin Exam: Normal Color, Warm Results - Vital Signs Recent Vital Signs: Last Vital Signs Temp 98.2 F 06/21/18 16:31 Pulse 83 06/21/18 17:30 Resp 18 06/21/18 17:30 BP 117/76 06/21/18 17:30 Pulse Ox 100 06/21/18 17:30 - Labs Result Diagrams: 06/21/18 16:33 06/21/18 16:33 Labs: Laboratory Results - last 24 hr 06/21/18 06/21/18 06/21/18 16:33 16:33 16:33 WBC 9.6 D RBC 4.84 Hgb 14.2 Hct 43.2 MCV 89.3 MCH 29.3 MCHC 32.9 RDW 13.8 Plt Count 314 MPV 9.8 Gran % 55.5 Lymph % (Auto) 32.5 [place] % (Auto) 8.6 H Eos % (Auto) 2.4 Baso % (Auto) 1.0 Gran # 5.34 Lymph # (Auto) 3.1 [place] # (Auto) 0.8 H Eos # (Auto) 0.2 Baso # (Auto) 0.10 PT 11.4 INR 1.00 APTT 33.4 Sodium 137 Potassium 4.3 Chloride 100 Carbon Dioxide 28 Anion Gap 13 BUN 15 Creatinine 0.8 Est GFR ( Amer) > 60 Est GFR (Non-Af Amer) > 60 Random Glucose 172 H Calcium 9.4 Magnesium 2.2 Total Bilirubin 0.8 AST 39 ALT 17 Alkaline Phosphatase 57 Lactate Dehydrogenase 572 Total Creatine Kinase 57 Troponin I < 0.01 Total Protein 7.7 Albumin 4.6 Globulin 3.2 Albumin/Globulin Ratio 1.4 Urine Color Urine Appearance Urine pH Ur Specific [place] Urine Protein Urine Glucose (UA) Urine Ketones Urine Blood Urine Nitrate Urine Bilirubin Urine Urobilinogen Ur Leukocyte Esterase Salicylates Acetaminophen U Cannabinoids Screen Alcohol, Quantitative 06/21/18 06/21/18 06/21/18 16:33 16:33 17:15 WBC RBC Hgb Hct MCV MCH MCHC RDW Plt Count MPV Gran % Lymph % (Auto) [place] % (Auto) Eos % (Auto) Baso % (Auto) Gran # Lymph # (Auto) [place] # (Auto) Eos # (Auto) Baso # (Auto) PT INR APTT Sodium Potassium Chloride Carbon Dioxide Anion Gap BUN Creatinine Est GFR ( Amer) Est GFR (Non-Af Amer) Random Glucose Calcium Magnesium Total Bilirubin AST ALT Alkaline Phosphatase Lactate Dehydrogenase Total Creatine Kinase Troponin I Total Protein Albumin Globulin Albumin/Globulin Ratio Urine Color Yellow Urine Appearance Clear Urine pH 7.0 Ur Specific [place] 1.025 Urine Protein Negative Urine Glucose (UA) Negative Urine Ketones Negative Urine Blood Negative Urine Nitrate Negative Urine Bilirubin Negative Urine Urobilinogen 0.2 Ur Leukocyte Esterase Negative Salicylates < 1 L Acetaminophen < 10.0 L U Cannabinoids Screen Alcohol, Quantitative < 10 06/21/18 17:15 WBC RBC Hgb Hct MCV MCH MCHC RDW Plt Count MPV Gran % Lymph % (Auto) [place] % (Auto) Eos % (Auto) Baso % (Auto) Gran # Lymph # (Auto) [place] # (Auto) Eos # (Auto) Baso # (Auto) PT INR APTT Sodium Potassium Chloride Carbon Dioxide Anion Gap BUN Creatinine Est GFR ( Amer) Est GFR (Non-Af Amer) Random Glucose Calcium Magnesium Total Bilirubin AST ALT Alkaline Phosphatase Lactate Dehydrogenase Total Creatine Kinase Troponin I Total Protein Albumin Globulin Albumin/Globulin Ratio Urine Color Urine Appearance Urine pH Ur Specific [place] Urine Protein Urine Glucose (UA) Urine Ketones Urine Blood Urine Nitrate Urine Bilirubin Urine Urobilinogen Ur Leukocyte Esterase Salicylates Acetaminophen U Cannabinoids Screen Negative Alcohol, Quantitative Assessment & Plan - Assessment and Plan (Free Text) Assessment: This is a 27 year old male with PMH of depression, schizophrenia and polysubstance abuse presenting to the ER s/p [employer] SCI[employer]INE[employer] for generalized tonic clonic seizures while patient was in the psych unit. Plan: Generalized tonic clonic seizures -s/p [employer] SCI[employer]INEER for first time seizure - provoked -patient admits to snorting 2 bags of heroin while in the psych unit; miotic pupils on exam -UDS positive for opiates -given narcan while in the ED -ED EKG showed ST at 106bpm with no ST changes -CT head negative -CXR pending -CPK pending -ativan prn for agitation -NS 100cc -xopenex -passed bedside eval in ED Hx of substance abuse -HIV pending Hx of depression/schizophrenia -continue psych meds, risperidone and paroxetine -psych on consult PPX/Diet -SCD, pepcid -regular diet Patient seen and case discussed with attending <Geovanni Mukherjee - Last Filed: 06/22/18 16:42> Results - Vital Signs Recent Vital Signs: Last Vital Signs Temp 97.5 F L 06/22/18 08:31 Pulse 82 06/22/18 08:31 Resp 18 06/22/18 08:31 BP 96/48 L 06/22/18 08:31 Pulse Ox 97 06/22/18 08:31 - Labs Result Diagrams: 06/22/18 05:30 06/22/18 05:30 Labs: Laboratory Results - last 24 hr 06/21/18 06/21/18 06/21/18 16:33 16:33 16:33 WBC 9.6 D RBC 4.84 Hgb 14.2 Hct 43.2 MCV 89.3 MCH 29.3 MCHC 32.9 RDW 13.8 Plt Count 314 MPV 9.8 Gran % 55.5 Lymph % (Auto) 32.5 [place] % (Auto) 8.6 H Eos % (Auto) 2.4 Baso % (Auto) 1.0 Gran # 5.34 Lymph # (Auto) 3.1 [place] # (Auto) 0.8 H Eos # (Auto) 0.2 Baso # (Auto) 0.10 PT 11.4 INR 1.00 APTT 33.4 Sodium 137 Potassium 4.3 Chloride 100 Carbon Dioxide 28 Anion Gap 13 BUN 15 Creatinine 0.8 Est GFR ( Amer) > 60 Est GFR (Non-Af Amer) > 60 Random Glucose 172 H Calcium 9.4 Phosphorus Magnesium 2.2 Total Bilirubin 0.8 AST 39 ALT 17 Alkaline Phosphatase 57 Lactate Dehydrogenase 572 Total Creatine Kinase 57 Troponin I < 0.01 Total Protein 7.7 Albumin 4.6 Globulin 3.2 Albumin/Globulin Ratio 1.4 Urine Color Urine Appearance Urine pH Ur Specific [place] Urine Protein Urine Glucose (UA) Urine Ketones Urine Blood Urine Nitrate Urine Bilirubin Urine Urobilinogen Ur Leukocyte Esterase Salicylates Urine Opiates Screen Urine Methadone Screen Acetaminophen Ur Barbiturates Screen Ur Phencyclidine Scrn Ur Amphetamines Screen U Benzodiazepines Scrn U Oth Cocaine Metabols U Cannabinoids Screen Alcohol, Quantitative 06/21/18 06/21/18 06/21/18 16:33 16:33 17:15 WBC RBC Hgb Hct MCV MCH MCHC RDW Plt Count MPV Gran % Lymph % (Auto) [place] % (Auto) Eos % (Auto) Baso % (Auto) Gran # Lymph # (Auto) [place] # (Auto) Eos # (Auto) Baso # (Auto) PT INR APTT Sodium Potassium Chloride Carbon Dioxide Anion Gap BUN Creatinine Est GFR ( Amer) Est GFR (Non-Af Amer) Random Glucose Calcium Phosphorus Magnesium Total Bilirubin AST ALT Alkaline Phosphatase Lactate Dehydrogenase Total Creatine Kinase Troponin I Total Protein Albumin Globulin Albumin/Globulin Ratio Urine Color Yellow Urine Appearance Clear Urine pH 7.0 Ur Specific [place] 1.025 Urine Protein Negative Urine Glucose (UA) Negative Urine Ketones Negative Urine Blood Negative Urine Nitrate Negative Urine Bilirubin Negative Urine Urobilinogen 0.2 Ur Leukocyte Esterase Negative Salicylates < 1 L Urine Opiates Screen Urine Methadone Screen Acetaminophen < 10.0 L Ur Barbiturates Screen Ur Phencyclidine Scrn Ur Amphetamines Screen U Benzodiazepines Scrn U Oth Cocaine Metabols U Cannabinoids Screen Alcohol, Quantitative < 10 06/21/18 06/21/18 06/22/18 17:15 20:58 05:30 WBC 7.2 D RBC 4.34 Hgb 12.5 L Hct 38.7 L MCV 89.2 MCH 28.8 MCHC 32.3 RDW 13.8 Plt Count 278 MPV 9.5 Gran % 42.2 L Lymph % (Auto) 43.9 H [place] % (Auto) 9.5 H Eos % (Auto) 3.8 Baso % (Auto) 0.6 Gran # 3.03 Lymph # (Auto) 3.2 [place] # (Auto) 0.7 H Eos # (Auto) 0.3 Baso # (Auto) 0.04 PT INR APTT Sodium Potassium Chloride Carbon Dioxide Anion Gap BUN Creatinine Est GFR ( Amer) Est GFR (Non-Af Amer) Random Glucose Calcium Phosphorus Magnesium Total Bilirubin AST ALT Alkaline Phosphatase Lactate Dehydrogenase Total Creatine Kinase 208 Troponin I Total Protein Albumin Globulin Albumin/Globulin Ratio Urine Color Urine Appearance Urine pH Ur Specific [place] Urine Protein Urine Glucose (UA) Urine Ketones Urine Blood Urine Nitrate Urine Bilirubin Urine Urobilinogen Ur Leukocyte Esterase Salicylates Urine Opiates Screen Positive H Urine Methadone Screen Negative Acetaminophen Ur Barbiturates Screen Negative Ur Phencyclidine Scrn Negative Ur Amphetamines Screen Negative U Benzodiazepines Scrn Negative U Oth Cocaine Metabols Negative U Cannabinoids Screen Negative Alcohol, Quantitative 06/22/18 05:30 WBC RBC Hgb Hct MCV MCH MCHC RDW Plt Count MPV Gran % Lymph % (Auto) [place] % (Auto) Eos % (Auto) Baso % (Auto) Gran # Lymph # (Auto) [place] # (Auto) Eos # (Auto) Baso # (Auto) PT INR APTT Sodium 137 Potassium 3.8 Chloride 100 Carbon Dioxide 30 Anion Gap 11 BUN 12 Creatinine 0.7 L Est GFR ( Amer) > 60 Est GFR (Non-Af Amer) > 60 Random Glucose 95 Calcium 9.0 Phosphorus 5.7 H Magnesium 2.1 Total Bilirubin 0.6 AST 26 ALT 27 Alkaline Phosphatase 45 Lactate Dehydrogenase Total Creatine Kinase Troponin I Total Protein 6.8 Albumin 4.0 Globulin 2.8 Albumin/Globulin Ratio 1.4 Urine Color Urine Appearance Urine pH Ur Specific [place] Urine Protein Urine Glucose (UA) Urine Ketones Urine Blood Urine Nitrate Urine Bilirubin Urine Urobilinogen Ur Leukocyte Esterase Salicylates Urine Opiates Screen Urine Methadone Screen Acetaminophen Ur Barbiturates Screen Ur Phencyclidine Scrn Ur Amphetamines Screen U Benzodiazepines Scrn U Oth Cocaine Metabols U Cannabinoids Screen Alcohol, Quantitative Attending/Attestation - Attestation I have personally seen and examined this patient.: Yes I have fully participated in the care of the patient.: Yes I have reviewed all pertinent clinical information: Yes
[2018-06-21] MEDS ORDERED: Levalbuterol 0.63 MG/3 ML Inhal Soln UD IH PRN (19:56)
[2018-06-21] MEDS ORDERED: Sodium Chloride 0.9% 1,000 ML IV SCH (20:00)
[2018-06-21 22:54] VITALS: BMI 14.9
[2018-06-21] MEDS ORDERED: Pneumococcal 23-Valent Vaccine IM ONE (22:54)
[2018-06-21] MEDS ORDERED: Influenza Vaccine 60 mcg/0.5 mL SYR (4YR UP) IM ONE (22:54)
--- NOTE | 2018-06-22 05:28 | PCM.PYCHDC ---
Mental Status Examination - Mental Status Examination Memory: Impaired Mood: Other (transferred s/p seizure) Affect: Constricted Speech: Slurred Attention: Poor Concentration: Poor Association: Loose Fund of Knowledge: Poor Formal Thought Process: Loosening of associations Description of patient's judgement and insight: Poor I/J Psychotic Thoughts and Behaviors: Patient denied perceptual disturbance during my visit with him at bedside on 06/21/18 Suicidal Ideation: No Current Homicidal Ideation?: No Discharge Summary - Discharge Note Reason for Hospitalization: Patient is an unemployed 27 y/o [place] Male, residing with his mother, diagnosed with Schizophrenia during his one prior psychiatric admission this past summer at [facility] who was transported to ED via EMS and [place] [employer] after he was found unconscious s/p OD on opiates, Psychiatric History (includes Medical, Family, Personal Hx): see hpi Laboratory Data: Abnormal Lab Results 06/21/18 06/21/18 06/21/18 16:33 16:33 16:33 WBC 9.6 D RBC 4.84 Hgb 14.2 Hct 43.2 MCV 89.3 MCH 29.3 MCHC 32.9 RDW 13.8 Plt Count 314 MPV 9.8 Gran % 55.5 Lymph % (Auto) 32.5 [place] % (Auto) 8.6 H Eos % (Auto) 2.4 Baso % (Auto) 1.0 Gran # 5.34 Lymph # (Auto) 3.1 [place] # (Auto) 0.8 H Eos # (Auto) 0.2 Baso # (Auto) 0.10 PT 11.4 INR 1.00 APTT 33.4 Sodium 137 Potassium 4.3 Chloride 100 Carbon Dioxide 28 Anion Gap 13 BUN 15 Creatinine 0.8 Est GFR ( Amer) > 60 Est GFR (Non-Af Amer) > 60 Random Glucose 172 H Calcium 9.4 Magnesium 2.2 Total Bilirubin 0.8 AST 39 ALT 17 Alkaline Phosphatase 57 Lactate Dehydrogenase 572 Total Creatine Kinase 57 Troponin I < 0.01 Total Protein 7.7 Albumin 4.6 Globulin 3.2 Albumin/Globulin Ratio 1.4 Urine Color Urine Appearance Urine pH Ur Specific Wall Urine Protein Urine Glucose (UA) Urine Ketones Urine Blood Urine Nitrate Urine Bilirubin Urine Urobilinogen Ur Leukocyte Esterase Salicylates Urine Opiates Screen Urine Methadone Screen Acetaminophen Ur Barbiturates Screen Ur Phencyclidine Scrn Ur Amphetamines Screen U Benzodiazepines Scrn U Oth Cocaine Metabols U Cannabinoids Screen Alcohol, Quantitative 06/21/18 06/21/18 06/21/18 16:33 16:33 17:15 WBC RBC Hgb Hct MCV MCH MCHC RDW Plt Count MPV Gran % Lymph % (Auto) [place] % (Auto) Eos % (Auto) Baso % (Auto) Gran # Lymph # (Auto) [place] # (Auto) Eos # (Auto) Baso # (Auto) PT INR APTT Sodium Potassium Chloride Carbon Dioxide Anion Gap BUN Creatinine Est GFR ( Amer) Est GFR (Non-Af Amer) Random Glucose Calcium Magnesium Total Bilirubin AST ALT Alkaline Phosphatase Lactate Dehydrogenase Total Creatine Kinase Troponin I Total Protein Albumin Globulin Albumin/Globulin Ratio Urine Color Yellow Urine Appearance Clear Urine pH 7.0 Ur Specific Wall 1.025 Urine Protein Negative Urine Glucose (UA) Negative Urine Ketones Negative Urine Blood Negative Urine Nitrate Negative Urine Bilirubin Negative Urine Urobilinogen 0.2 Ur Leukocyte Esterase Negative Salicylates < 1 L Urine Opiates Screen Urine Methadone Screen Acetaminophen < 10.0 L Ur Barbiturates Screen Ur Phencyclidine Scrn Ur Amphetamines Screen U Benzodiazepines Scrn U Oth Cocaine Metabols U Cannabinoids Screen Alcohol, Quantitative < 10 06/21/18 06/21/18 17:15 20:58 WBC RBC Hgb Hct MCV MCH MCHC RDW Plt Count MPV Gran % Lymph % (Auto) [place] % (Auto) Eos % (Auto) Baso % (Auto) Gran # Lymph # (Auto) [place] # (Auto) Eos # (Auto) Baso # (Auto) PT INR APTT Sodium Potassium Chloride Carbon Dioxide Anion Gap BUN Creatinine Est GFR ( Amer) Est GFR (Non-Af Amer) Random Glucose Calcium Magnesium Total Bilirubin AST ALT Alkaline Phosphatase Lactate Dehydrogenase Total Creatine Kinase 208 Troponin I Total Protein Albumin Globulin Albumin/Globulin Ratio Urine Color Urine Appearance Urine pH Ur Specific Wall Urine Protein Urine Glucose (UA) Urine Ketones Urine Blood Urine Nitrate Urine Bilirubin Urine Urobilinogen Ur Leukocyte Esterase Salicylates Urine Opiates Screen Positive H Urine Methadone Screen Negative Acetaminophen Ur Barbiturates Screen Negative Ur Phencyclidine Scrn Negative Ur Amphetamines Screen Negative U Benzodiazepines Scrn Negative U Oth Cocaine Metabols Negative U Cannabinoids Screen Negative Alcohol, Quantitative Laboratory Tests 06/21/18 06/21/18 06/21/18 16:33 16:33 16:33 WBC 9.6 D RBC 4.84 Hgb 14.2 Hct 43.2 MCV 89.3 MCH 29.3 MCHC 32.9 RDW 13.8 Plt Count 314 MPV 9.8 Gran % 55.5 Lymph % (Auto) 32.5 [place] % (Auto) 8.6 H Eos % (Auto) 2.4 Baso % (Auto) 1.0 Gran # 5.34 Lymph # (Auto) 3.1 [place] # (Auto) 0.8 H Eos # (Auto) 0.2 Baso # (Auto) 0.10 PT 11.4 INR 1.00 APTT 33.4 Sodium 137 Potassium 4.3 Chloride 100 Carbon Dioxide 28 Anion Gap 13 BUN 15 Creatinine 0.8 Est GFR ( Amer) > 60 Est GFR (Non-Af Amer) > 60 Random Glucose 172 H Calcium 9.4 Magnesium 2.2 Total Bilirubin 0.8 AST 39 ALT 17 Alkaline Phosphatase 57 Lactate Dehydrogenase 572 Total Creatine Kinase 57 Troponin I < 0.01 Total Protein 7.7 Albumin 4.6 Globulin 3.2 Albumin/Globulin Ratio 1.4 Urine Color Urine Appearance Urine pH Ur Specific Wall Urine Protein Urine Glucose (UA) Urine Ketones Urine Blood Urine Nitrate Urine Bilirubin Urine Urobilinogen Ur Leukocyte Esterase Salicylates Urine Opiates Screen Urine Methadone Screen Acetaminophen Ur Barbiturates Screen Ur Phencyclidine Scrn Ur Amphetamines Screen U Benzodiazepines Scrn U Oth Cocaine Metabols U Cannabinoids Screen Alcohol, Quantitative 06/21/18 06/21/18 06/21/18 16:33 16:33 17:15 WBC RBC Hgb Hct MCV MCH MCHC RDW Plt Count MPV Gran % Lymph % (Auto) [place] % (Auto) Eos % (Auto) Baso % (Auto) Gran # Lymph # (Auto) [place] # (Auto) Eos # (Auto) Baso # (Auto) PT INR APTT Sodium Potassium Chloride Carbon Dioxide Anion Gap BUN Creatinine Est GFR ( Amer) Est GFR (Non-Af Amer) Random Glucose Calcium Magnesium Total Bilirubin AST ALT Alkaline Phosphatase Lactate Dehydrogenase Total Creatine Kinase Troponin I Total Protein Albumin Globulin Albumin/Globulin Ratio Urine Color Yellow Urine Appearance Clear Urine pH 7.0 Ur Specific Wall 1.025 Urine Protein Negative Urine Glucose (UA) Negative Urine Ketones Negative Urine Blood Negative Urine Nitrate Negative Urine Bilirubin Negative Urine Urobilinogen 0.2 Ur Leukocyte Esterase Negative Salicylates < 1 L Urine Opiates Screen Urine Methadone Screen Acetaminophen < 10.0 L Ur Barbiturates Screen Ur Phencyclidine Scrn Ur Amphetamines Screen U Benzodiazepines Scrn U Oth Cocaine Metabols U Cannabinoids Screen Alcohol, Quantitative < 10 06/21/18 06/21/18 17:15 20:58 WBC RBC Hgb Hct MCV MCH MCHC RDW Plt Count MPV Gran % Lymph % (Auto) [place] % (Auto) Eos % (Auto) Baso % (Auto) Gran # Lymph # (Auto) [place] # (Auto) Eos # (Auto) Baso # (Auto) PT INR APTT Sodium Potassium Chloride Carbon Dioxide Anion Gap BUN Creatinine Est GFR ( Amer) Est GFR (Non-Af Amer) Random Glucose Calcium Magnesium Total Bilirubin AST ALT Alkaline Phosphatase Lactate Dehydrogenase Total Creatine Kinase 208 Troponin I Total Protein Albumin Globulin Albumin/Globulin Ratio Urine Color Urine Appearance Urine pH Ur Specific Wall Urine Protein Urine Glucose (UA) Urine Ketones Urine Blood Urine Nitrate Urine Bilirubin Urine Urobilinogen Ur Leukocyte Esterase Salicylates Urine Opiates Screen Positive H Urine Methadone Screen Negative Acetaminophen Ur Barbiturates Screen Negative Ur Phencyclidine Scrn Negative Ur Amphetamines Screen Negative U Benzodiazepines Scrn Negative U Oth Cocaine Metabols Negative U Cannabinoids Screen Negative Alcohol, Quantitative Consultations:: List each consultation separately and include: 1. Reason for request. 2. Findings. 3. Follow-up Consultations: Seen by Aayush Gunderson PGY1 for tonic clonic seizure on the psychiatric unit. Rapid response called 06/21/18 Summary of Hospital Course include:: 1. Description of specific treatment plan utilized for patients during their course of treatmen. 2. Summarize the time- course for resolution of acute symptoms and/or regressed behaviors. 3. Describe issues identified and worked on during hospitalization. 4. Describe medication utilized. 5. Describe medical problems identified and treated. 6. Reassessment of suicide risk Summary of Hospital Course: ADMISSION NOTE BY DR. FENG 06/21/18 Shortly pt is a 27 y/o [place] Male, unemployed, lives with mother, pt was transported to ED via EMS and [place] [employer], as per report pt was found unconscious after he OD on opioid, pt has one psych admission at [facility] over this summer, pt was diagnosed with schizophrenia. pt most likely was noncompliant with meds, patient evaluation and stabilization and medication adjustments. Patient was seen today at the treatment team meeting, patient presented to have poor personal hygiene, has long/wavy/uncombed hair, patient appears to be unkempt, not shaved, has long/ nails, very thin build, multiple tattoos on upper extremities, but patient is not malodorous. Fair ADLs. Patient presented to be withdrawn, flat affect, thought blocking, patient presented to be weird/odd, possible negative symptoms of schizophrenia cannot be excluded. Patient presented with some psychomotor retardation, difficulties to express himself, patient reported that he was feeling depressed, hopeless and helpless, patient denied any thoughts of harming himself or others, but this feature writer not sure if pt intentionally overdosed on heroin. pt seems to be an unreliable historian, patient reported that he hears his mother voices in his head, "it is positive voices, she is telling me to find a job". Patient denied history of command type hallucinations, patient presented to be guarded and mildly paranoid. Patient reported that he snorted heroin only once prior to come to the hospital, denied using any substances, denies smoking, denied using any illicit drugs, denied using alcohol. Patient denied being abused, denied physical/emotional/sexual abuse. Past psychiatric history: Patient was admitted at [facility] in December 2017, patient presented to be psychotic, with bizarre behavior, patient was diagnosed with schizophrenia, patient had disorganized behavior for example patient had given away all of his clothing to [facility], removed the doors on his room, presented to be psychotic talking to himself, responding to internal stimuli. Patient was stabilized on Prolixin, trazodone, Depakote and Cogentin. Patient denied history of suicidal attempts in the past, contracted for safety. Medical history: As per history patient has vitamin D deficiency, patient appears to be malnourished, very thin build. Family history: Patient denies any family history of mental illness. Social history: Patient does not work, self isolating, quit college. PROGRESS NOTE BY DR. BOWEN 06/22/18 I reviewed assessment and recent notes on the unit. Patient is an unemployed 27 y/o [place] Male, residing with his mother, diagnosed with Schizophrenia during his one prior psychiatric admission this past summer at [facility] who was transported to ED via EMS and [place] [employer] after he was found unconscious s/p OD on opiates I met with patient at bedside. He is quiet with flat affect. Oriented to month, year and location. He is not engaged and offers only brief responses to my questions. Eye contact is poor and patient flatly states that his mood is good. He denies experiencing any hallucinations this morning. Tolerating medications and doesn't appear to be in any physical discomfort. He denies any new concerns in this respect. Patient appears preoccupied, distracted and blunt however he isn't responding to internal stimuli. His appearance and interactions are odd. Psychotic symptoms are mostly negative, he hasn't demonstrated any overtly bizarre or aggressive behaviors. He generally keeps to himself on the unit with minimal socializing. Pt signed a 48 hours notice a 9am on 06/21/18. This provider requested a screening for involuntary commitment. PATIENT HAD A RAPID RESPONSE ON THE UNIT AT 4 PM ON 06/21/18 BECAUSE OF SEIZURE. PER MEDICINE NOTES PATIENT ADMITTED TO SNORTING HEROIN ON THE UNIT. PATIENT WAS BROUGHT TO THE ER AND THEN MEDICALLY ADMITTED - Final Diagnosis (DSM 5) Condition upon Discharge: GUARDED DSM 5: Schizophrenia to be ruled out Opioid abuse S/P RAPID RESPONSE BECAUSE OF SEIZURE ON THE UNIT, PATIENT ADMITTED TO SNORTING HEROIN ON THE UNIT Disposition: OTHER INSTITUTION Follow-up Treatment Plan: S/P RAPID RESPONSE BECAUSE OF SEIZURE ON THE UNIT, PATIENT ADMITTED TO SNORTING HEROIN ON THE UNIT AND WAS BROUGHT TO THE ER AND THEN MEDICALLY ADMITTED - Smoking Cessation Smoking Cessation Medication prescribed: No - Antipsychotic Medications Pt discharged on 2 or more routine antipsychotic medications: No
[2018-06-22 06:57] LABS: ALB/GLOB RATIO 1.4 (1.1-1.8); ALT/SGPT 27 U/L (7-56); AST/SGOT 26 U/L (17-59); BLOOD UREA NITROGEN 12 mg/dL (7-21); GFR NON-AFRICAN AMERICAN > 60
[2018-06-22 06:58] LABS: BASO # 0.04 K/mm3 (0.0-2.0); BASO % 0.6 % (0.0-3.0); EOS # 0.3 (0.0-0.7); EOS % 3.8 % (1.5-5.0); GRAN # 3.03 (1.4-6.5); GRAN % 42.2 % (50.0-68.0); HEMOGLOBIN 12.5 g/dL (14.0-18.0); LYMPH # 3.2 (1.2-3.4); LYMPH % 43.9 % (22.0-35.0); MEAN CELL VOLUME 89.2 fl (80.0-105.0); MEAN CORPUSCULAR HEMOGLOBIN 28.8 pg (25.0-35.0); MEAN CORPUSCULAR HGB CONC 32.3 g/dl (31.0-37.0); MEAN PLATELET VOLUME 9.5 fl (7.0-11.0); MONO # 0.7 (0.1-0.6); MONO % 9.5 % (1.0-6.0); RBC 4.34 10^6/uL (3.5-6.1); RED CELL DISTRIBUTION WIDTH 13.8 % (11.5-14.5); WHITE BLOOD COUNT 7.2 10^3/uL (4.5-11.0)
--- NOTE | 2018-06-22 08:47 | RAD ---
Date of service: 06/21/2018 HISTORY: seizure COMPARISON: Chest radiograph dated 06/19/2018. FINDINGS: LUNGS: Increased pulmonary markings bilaterally. PLEURA: No significant pleural effusion identified, no pneumothorax apparent. CARDIOVASCULAR: No aortic atherosclerotic calcification present. Normal cardiac size. No pulmonary vascular congestion. OSSEOUS STRUCTURES: No significant abnormalities. VISUALIZED UPPER ABDOMEN: Normal. OTHER FINDINGS: None. IMPRESSION: Increased pulmonary markings bilaterally can be seen with acute viral syndrome and/or reactive airway disease.
[2018-06-22] MEDS: Nystatin 100,000 Units/gm Cream(15 gm) TOP SCH (13:05)
--- NOTE | 2018-06-22 14:04 | CP.PCM.PN ---
<Obie Babcock - Last Filed: 06/22/18 14:01> Subjective - Date & Time of Evaluation Date of Evaluation: 06/22/18 Time of Evaluation: 09:15 - Subjective Subjective: Medicine Progress Note for Hospitalist Service, Dr. Lonny Babcock, DO PGY-1 Pt seen and examined at bedside. AAOx2, unable to answer questions fully due to current mental status. No reported seizures since being admitted and on medical floor. Admits that he snorted heroin yesterday in the psych unit prior to his seizure and being evaluated in the ED. Further ROS unobtainable due to pt's current mental status. Objective - Vital Signs/Intake and Output Vital Signs (last 24 hours): Temp Pulse Resp BP Pulse Ox 97.5 F L 82 18 96/48 L 97 06/22/18 08:31 06/22/18 08:31 06/22/18 08:31 06/22/18 08:31 06/22/18 08:31 Intake and Output: 06/22/18 06/22/18 06:59 18:59 Intake Total 360 Balance 360 - Medications Medications: Current Medications Benztropine Mesylate (Cogentin) 1 mg PO HS HAIM Famotidine (Pepcid) 20 mg IVP DAILY HAIM Last Admin: 06/22/18 10:44 Dose: 20 mg Sodium Chloride (Sodium Chloride 0.9%) 1,000 mls @ 100 mls/hr IV .Q10H HAIM Last Admin: 06/21/18 20:10 Dose: 100 mls/hr Levalbuterol HCl (Xopenex) 0.63 mg IH [id number] PRN PRN Reason: Shortness of Breath Lorazepam (Ativan) 2 mg IVP Q2 PRN; Protocol PRN Reason: Agitation Last Admin: 06/22/18 01:24 Dose: 2 mg Nystatin (Mycostatin Cream) 0 ea TOP DAILY HAIM Last Admin: 06/22/18 13:05 Dose: 1 appl Paroxetine HCl (Paxil) 10 mg PO HS HAIM Last Admin: 06/21/18 22:45 Dose: 10 mg Risperidone (Risperdal Tab) 1 mg PO AMHS HAIM; Protocol Last Admin: 06/22/18 13:04 Dose: 1 mg Risperidone (Risperdal Tab) 2 mg PO HS HAIM; Protocol - Labs Labs: 06/22/18 05:30 06/22/18 05:30 PT 11.4 SECONDS (9.4-12.5) 06/21/18 16:33 INR 1.00 06/21/18 16:33 APTT 33.4 Seconds (25.1-36.5) 06/21/18 16:33 - Constitutional Appears: Non-toxic, No Acute Distress - Head Exam Head Exam: ATRAUMATIC, NORMOCEPHALIC - Eye Exam Eye Exam: EOMI, Normal appearance, PERRL - ENT Exam ENT Exam: Mucous Membranes Moist - Respiratory Exam Respiratory Exam: Clear to Ausculation Bilateral, NORMAL BREATHING PATTERN. absent: Rales, Rhonchi, Wheezes - Cardiovascular Exam Cardiovascular Exam: REGULAR RHYTHM, +S1, +S2. absent: Gallop, Rubs, Murmur - GI/Abdominal Exam GI & Abdominal Exam: Soft, Normal Bowel Sounds. absent: Distended, Guarding, Tenderness, Organomegaly - Extremities Exam Extremities Exam: Full ROM, Normal Capillary Refill, Normal Inspection. absent: Calf Tenderness, Pedal Edema - Neurological Exam Neurological Exam: Alert, Awake, CN II-XII Intact Additional comments: Oriented x2 - Psychiatric Exam Psychiatric exam: Flat Affect - Skin Skin Exam: Dry, Intact, Normal Color, Warm Assessment and Plan - Assessment and Plan (Free Text) Assessment: 27 year old male with PMH of depression, schizophrenia and polysubstance abuse presenting to the ER s/p DIVISION OPERATIONS MANAGER for generalized tonic clonic seizures while patient was in the psych unit. Likely 2/2 heroin abuse. Plan: Generalized tonic clonic seizures -S/p DIVISION OPERATIONS MANAGER for first time seizure - provoked; however on encounter today pt admitted to having seizures in the past 2/2 heroin abuse -Pt admitted to snorting 2 bags of heroin while in the psych unit -UDS positive for opiates -Given Narcan while in the ED -ED EKG showed ST at 106bpm with no ST changes -CT head negative -CXR 06/21: increased pulmonary markings b/l can be seen w/ acute viral syndrome and/or reactive airway disease. -CPK wnl -Ativan prn for agitation -NS 100cc -Xopenex -Passed bedside eval in ED -Neuro (Dr. Natarajan) consulted for seizure, recs appreciated Hx of Substance abuse -HIV pending Hx of Depression/schizophrenia -Continue psych meds, risperidone and paroxetine -Psych on consult, recs appreciated PPX/Diet -SCD, pepcid -Regular diet Pt seen, examined with, and plan discussed with Dr. Mukherjee, attending physician. Obie Babcock DO PGY-1, [employer] Pager #[phone] <Geovanni Mukherjee - Last Filed: 06/22/18 16:33> Objective - Vital Signs/Intake and Output Vital Signs (last 24 hours): Temp Pulse Resp BP Pulse Ox 97.5 F L 82 18 96/48 L 97 06/22/18 08:31 06/22/18 08:31 06/22/18 08:31 06/22/18 08:31 06/22/18 08:31 Intake and Output: 06/22/18 06/22/18 06:59 18:59 Intake Total 360 Balance 360 - Medications Medications: Current Medications Benztropine Mesylate (Cogentin) 1 mg PO HS HAIM Famotidine (Pepcid) 20 mg IVP DAILY HAIM Last Admin: 06/22/18 10:44 Dose: 20 mg Sodium Chloride (Sodium Chloride 0.9%) 1,000 mls @ 100 mls/hr IV .Q10H HAIM Last Admin: 06/21/18 20:10 Dose: 100 mls/hr Levalbuterol HCl (Xopenex) 0.63 mg IH [id number] PRN PRN Reason: Shortness of Breath Lorazepam (Ativan) 1 mg IVP Q6 PRN; Protocol PRN Reason: Agitation Nystatin (Mycostatin Cream) 0 ea TOP DAILY HAIM Last Admin: 06/22/18 13:05 Dose: 1 appl Paroxetine HCl (Paxil) 10 mg PO HS HAIM Last Admin: 06/21/18 22:45 Dose: 10 mg Risperidone (Risperdal Tab) 1 mg PO AMHS HAIM; Protocol Last Admin: 06/22/18 13:04 Dose: 1 mg Risperidone (Risperdal Tab) 2 mg PO HS HAIM; Protocol - Labs Labs: 06/22/18 05:30 06/22/18 05:30 PT 11.4 SECONDS (9.4-12.5) 06/21/18 16:33 INR 1.00 06/21/18 16:33 APTT 33.4 Seconds (25.1-36.5) 06/21/18 16:33 Attending/Attestation - Attestation I have personally seen and examined this patient.: Yes I have fully participated in the care of the patient.: Yes I have reviewed all pertinent clinical information, including history, physical exam and plan: Yes Notes (Text): 06/22/18 16:25 attending note; Patient seen and examined with resident this morning. Patient is alert and awake. Not communicating much. Not in any acute distress. Patient is a 27 year old male with PMH of depression, schizophrenia and polysubstance abuse presenting to the ER s/p DIVISION OPERATIONS MANAGER for generalized tonic clonic seizures while patient was in the psych unit. Patient was initially evaluated in the hospital on 06/18/18 after being found unresponsive in the field and noted have multiples bags of heroin in his jacket. He was subsequently taken to the ED and given narcan while enroute. Since being admitted to the psych unit, there have been no reported seizures. During the DIVISION OPERATIONS MANAGER today, patient noted to be unresponsive, generalized tonic clonic movements of the limbs, miotic pupils and no witnessed urinary/fecal incontinence or tongue biting. He was given 2mg ativan IM and taken to the ED where he received narcan. He then became arousable and noted to be confused with no recollection of the event. He admits to snorting two bags of heroin prior to seizure episode today while on 5B. 1. seizure: secondary to drug abuse. currently patient is seizure free. Continue IV Ativan when necessary. 2. Psychiatric disorder; continue Paxil. Patient was evaluated by psychiatrist today. [facility] evaluation for involuntary commitment recommended. EKG, chest x-ray and labs reviewed. Patient is medically stable For transfer to the Psych floor Today. Case discussed with psychiatrist in detail. Upon discharge the patient will follow-up with PMD Dr. Phelps.
--- NOTE | 2018-06-22 15:26 | CP.PCM.CON ---
History of Present Illness - History of Present Illness History of Present Illness: As per chart: " 27 year old male with PMH of depression, schizophrenia and polysubstance abuse presenting to the ER s/p SPECIAL EDUCATION PROFESSOR for generalized tonic clonic seizures while patient was in the psych unit. Patient was initially evaluated in the hospital on 06/18/18 after being found unresponsive in the field and noted have multiples bags of heroin in his jacket. He was subsequently taken to the ED and given narcan while en route. Since being admitted to the psych unit, there have been no reported seizures. During the SPECIAL EDUCATION PROFESSOR today, patient noted to be unresponsive, generalized tonic clonic movements of the limbs, miotic pupils and no witnessed urinary/fecal incontinence or tongue biting. He was given 2mg ativan IM and taken to the ED where he received narcan. He then became arousable and noted to be confused with no recollection of the event. He admits to snorting two bags of heroin prior to seizure episode today while on 5B and does not admit to how he received the drugs. He denies ever having seizures in the past. He denies IV drug use. He denies CP, SOB, headaches, fevers, nausea, vomiting, back pain, abdominal pain, suicidal ideations, command hallucinations, numbness, tingling, swelling and urinary complaints. 12 point ROS noted here, otherwise unremarkable. PMD: none Psych: Dr. Resendiz (last seen 2 weeks ago) SH: admits to snorting cocaine and heroin, and smoking marijuana. Admits to drinking alcohol and smoking cigarettes recreationally. Lives at home in [place] with Mom. Has no other siblings at home. Dropped out of college due to poor grades per mother. Is not employed. Sx: denies surgeries FH: denies All: denies Meds: noncompliant, previously on trazodone and risperidone per mother" On exam: Normal neurological examination. There are no deficits noted. Past Patient History - Infectious Disease Hx of Infectious Diseases: None - Past Social History Smoking Status: Light Smoker < 10 Cigarettes Daily - CARDIAC Hx Hypertension: Yes (mother suffers from HBP) - PULMONARY Hx Respiratory Disorders: Yes (smoker) - NEUROLOGICAL Hx Neurological Disorder: Yes Other/Comment: seizure-like activity today on psych unit - HEENT Hx HEENT Problems: No - RENAL Hx Chronic Kidney Disease: No - ENDOCRINE/METABOLIC Hx Endocrine Disorders: No - HEMATOLOGICAL/ONCOLOGICAL Hx Blood Disorders: Yes (vitamin d deficiency) Hx Cancer: No - INTEGUMENTARY Hx Dermatological Problems: Yes (multiple tatoos) - MUSCULOSKELETAL/RHEUMATOLOGICAL Hx Musculoskeletal Disorders: No Hx Falls: No - GASTROINTESTINAL Hx Gastrointestinal Disorders: No - GENITOURINARY/GYNECOLOGICAL Hx Genitourinary Disorders: No Hx Sexually Transmitted Disorders: No - PSYCHIATRIC Hx Psychophysiologic Disorder: Yes Hx Depression: Yes (hx of suicidal ideation) Hx Schizophrenia: Yes Hx Substance Use: Yes (heroin/pot "since high school") Other/Comment: opiate drug use heroin and marijuana "since high school" pt stated, community resource use - SURGICAL HISTORY Hx Surgeries: No - ANESTHESIA Hx Anesthesia: No Meds Allergies/Adverse Reactions: Allergies Allergy/AdvReac Type Severity Reaction Status Date / Time No Known Allergies Allergy Verified 06/21/18 16:43 - Medications Medications: Current Medications Benztropine Mesylate (Cogentin) 1 mg PO HS HAIM Famotidine (Pepcid) 20 mg IVP DAILY HAIM Last Admin: 06/22/18 10:44 Dose: 20 mg Sodium Chloride (Sodium Chloride 0.9%) 1,000 mls @ 100 mls/hr IV .Q10H HAIM Last Admin: 06/21/18 20:10 Dose: 100 mls/hr Levalbuterol HCl (Xopenex) 0.63 mg IH [id number] PRN PRN Reason: Shortness of Breath Lorazepam (Ativan) 2 mg IVP Q2 PRN; Protocol PRN Reason: Agitation Last Admin: 06/22/18 01:24 Dose: 2 mg Nystatin (Mycostatin Cream) 0 ea TOP DAILY HAIM Last Admin: 06/22/18 13:05 Dose: 1 appl Paroxetine HCl (Paxil) 10 mg PO HS HAIM Last Admin: 06/21/18 22:45 Dose: 10 mg Risperidone (Risperdal Tab) 1 mg PO AMHS HAIM; Protocol Last Admin: 06/22/18 13:04 Dose: 1 mg Risperidone (Risperdal Tab) 2 mg PO HS HAIM; Protocol Results - Vital Signs Recent Vital Signs: Last Vital Signs Temp 97.5 F L 06/22/18 08:31 Pulse 82 06/22/18 08:31 Resp 18 06/22/18 08:31 BP 96/48 L 06/22/18 08:31 Pulse Ox 97 06/22/18 08:31 - Labs Result Diagrams: 06/22/18 05:30 06/22/18 05:30 Labs: Laboratory Results - last 24 hr 06/21/18 06/21/18 06/21/18 16:33 16:33 16:33 WBC 9.6 D RBC 4.84 Hgb 14.2 Hct 43.2 MCV 89.3 MCH 29.3 MCHC 32.9 RDW 13.8 Plt Count 314 MPV 9.8 Gran % 55.5 Lymph % (Auto) 32.5 [place] % (Auto) 8.6 H Eos % (Auto) 2.4 Baso % (Auto) 1.0 Gran # 5.34 Lymph # (Auto) 3.1 [place] # (Auto) 0.8 H Eos # (Auto) 0.2 Baso # (Auto) 0.10 PT 11.4 INR 1.00 APTT 33.4 Sodium 137 Potassium 4.3 Chloride 100 Carbon Dioxide 28 Anion Gap 13 BUN 15 Creatinine 0.8 Est GFR ( Amer) > 60 Est GFR (Non-Af Amer) > 60 Random Glucose 172 H Calcium 9.4 Phosphorus Magnesium 2.2 Total Bilirubin 0.8 AST 39 ALT 17 Alkaline Phosphatase 57 Lactate Dehydrogenase 572 Total Creatine Kinase 57 Troponin I < 0.01 Total Protein 7.7 Albumin 4.6 Globulin 3.2 Albumin/Globulin Ratio 1.4 Urine Color Urine Appearance Urine pH Ur Specific [place] Urine Protein Urine Glucose (UA) Urine Ketones Urine Blood Urine Nitrate Urine Bilirubin Urine Urobilinogen Ur Leukocyte Esterase Salicylates Urine Opiates Screen Urine Methadone Screen Acetaminophen Ur Barbiturates Screen Ur Phencyclidine Scrn Ur Amphetamines Screen U Benzodiazepines Scrn U Oth Cocaine Metabols U Cannabinoids Screen Alcohol, Quantitative 06/21/18 06/21/18 06/21/18 16:33 16:33 17:15 WBC RBC Hgb Hct MCV MCH MCHC RDW Plt Count MPV Gran % Lymph % (Auto) [place] % (Auto) Eos % (Auto) Baso % (Auto) Gran # Lymph # (Auto) [place] # (Auto) Eos # (Auto) Baso # (Auto) PT INR APTT Sodium Potassium Chloride Carbon Dioxide Anion Gap BUN Creatinine Est GFR ( Amer) Est GFR (Non-Af Amer) Random Glucose Calcium Phosphorus Magnesium Total Bilirubin AST ALT Alkaline Phosphatase Lactate Dehydrogenase Total Creatine Kinase Troponin I Total Protein Albumin Globulin Albumin/Globulin Ratio Urine Color Yellow Urine Appearance Clear Urine pH 7.0 Ur Specific [place] 1.025 Urine Protein Negative Urine Glucose (UA) Negative Urine Ketones Negative Urine Blood Negative Urine Nitrate Negative Urine Bilirubin Negative Urine Urobilinogen 0.2 Ur Leukocyte Esterase Negative Salicylates < 1 L Urine Opiates Screen Urine Methadone Screen Acetaminophen < 10.0 L Ur Barbiturates Screen Ur Phencyclidine Scrn Ur Amphetamines Screen U Benzodiazepines Scrn U Oth Cocaine Metabols U Cannabinoids Screen Alcohol, Quantitative < 10 06/21/18 06/21/18 06/22/18 17:15 20:58 05:30 WBC 7.2 D RBC 4.34 Hgb 12.5 L Hct 38.7 L MCV 89.2 MCH 28.8 MCHC 32.3 RDW 13.8 Plt Count 278 MPV 9.5 Gran % 42.2 L Lymph % (Auto) 43.9 H [place] % (Auto) 9.5 H Eos % (Auto) 3.8 Baso % (Auto) 0.6 Gran # 3.03 Lymph # (Auto) 3.2 [place] # (Auto) 0.7 H Eos # (Auto) 0.3 Baso # (Auto) 0.04 PT INR APTT Sodium Potassium Chloride Carbon Dioxide Anion Gap BUN Creatinine Est GFR ( Amer) Est GFR (Non-Af Amer) Random Glucose Calcium Phosphorus Magnesium Total Bilirubin AST ALT Alkaline Phosphatase Lactate Dehydrogenase Total Creatine Kinase 208 Troponin I Total Protein Albumin Globulin Albumin/Globulin Ratio Urine Color Urine Appearance Urine pH Ur Specific [place] Urine Protein Urine Glucose (UA) Urine Ketones Urine Blood Urine Nitrate Urine Bilirubin Urine Urobilinogen Ur Leukocyte Esterase Salicylates Urine Opiates Screen Positive H Urine Methadone Screen Negative Acetaminophen Ur Barbiturates Screen Negative Ur Phencyclidine Scrn Negative Ur Amphetamines Screen Negative U Benzodiazepines Scrn Negative U Oth Cocaine Metabols Negative U Cannabinoids Screen Negative Alcohol, Quantitative 06/22/18 05:30 WBC RBC Hgb Hct MCV MCH MCHC RDW Plt Count MPV Gran % Lymph % (Auto) [place] % (Auto) Eos % (Auto) Baso % (Auto) Gran # Lymph # (Auto) [place] # (Auto) Eos # (Auto) Baso # (Auto) PT INR APTT Sodium 137 Potassium 3.8 Chloride 100 Carbon Dioxide 30 Anion Gap 11 BUN 12 Creatinine 0.7 L Est GFR ( Amer) > 60 Est GFR (Non-Af Amer) > 60 Random Glucose 95 Calcium 9.0 Phosphorus 5.7 H Magnesium 2.1 Total Bilirubin 0.6 AST 26 ALT 27 Alkaline Phosphatase 45 Lactate Dehydrogenase Total Creatine Kinase Troponin I Total Protein 6.8 Albumin 4.0 Globulin 2.8 Albumin/Globulin Ratio 1.4 Urine Color Urine Appearance Urine pH Ur Specific [place] Urine Protein Urine Glucose (UA) Urine Ketones Urine Blood Urine Nitrate Urine Bilirubin Urine Urobilinogen Ur Leukocyte Esterase Salicylates Urine Opiates Screen Urine Methadone Screen Acetaminophen Ur Barbiturates Screen Ur Phencyclidine Scrn Ur Amphetamines Screen U Benzodiazepines Scrn U Oth Cocaine Metabols U Cannabinoids Screen Alcohol, Quantitative Assessment & Plan - Assessment and Plan (Free Text) Assessment: CT head: normal. EEG: pending. 27 yr old male with known seizures secondary to heroin use, not likely to be primary epilepsy. However, we will obtain EEG. At the moment, I do feel that there is no indication for antiepileptic medications. Thank you [facility] team will follow Dr. herrera
[2018-06-22 16:46] VITALS: O2SAT 98
--- NOTE | 2018-06-22 20:06 | CARD ---
APPROVED REPORT Date of service: 06/21/2018 EKG Measurement Heart [id number] <Conclusion> Sinus tachycardia Rightward axis Borderline ECG
[2018-06-23 08:15] VITALS: BP 103/74; PULSE 71; TEMP 97.8
--- NOTE | 2018-06-23 08:37 | CON ---
DATE OF CONSULTATION: 06/22/2018 HISTORY OF PRESENT ILLNESS: The patient is an unemployed 27-year-old male residing with his mother, diagnosed with schizophrenia during his one prior psychiatric admission this past summer at [facility], who was transported to the emergency room via EMS and policemen after he was found unconscious status post overdose on opiate. The patient was admitted to the psychiatric unit and seen by Dr. Ambrosio on 06/19/2018 and 06/20/2018 and this provider met with him at bedside on 06/21/2018. Apparently, the patient was noted to be withdrawn with negative symptoms of schizophrenia including thought blocking, all these related with psychomotor retardation and with difficulty expressing himself. These appear to be similar symptoms that I observed during my meeting with him previously on the psychiatric floor. The patient reportedly was not coherent or alert prior to coming to the hospital. I discussed that they should arrange a meeting with Dr. Ambrosio. When I met with him at bedside yesterday, he was not forthcoming or overly communicative. He was noted to be quiet with flat affect, but oriented. The patient denied any new concerns. He did not appear to be responding to internal stimuli. . The patient did obtain preliminary at 9 a.m. on 06/21/2018 which provided . However, the patient had a rapid response that same day due to tonic-clonic seizure like activity. He was transferred to the ER and then medically admitted and this provider has followed up with the patient on the medical floor to monitor his progress. I reviewed Hospital H and P, which indicated that the patient admitted to snorting 2 bags of heroin twice prior to his seizure episode on the psychiatric unit. However, he did not admit to how he received the drugs. I tried to question the patient at bedside about this admission; however, the patient absolutely refuses during this conversation yesterday, though he is conscious. His eyes opened . He predominantly keeps his eyes closed and again resisted to respond. On the medical floor, he did have exhibit any major medical issues. He was noted to be pacing around , but generally calm. At one point, he did reminder about unit rules and current circumstances. I find that the patient continues to be disorganized and unpredictable and requires further psychiatric stabilization. His insight and judgement are poor at this time. Labs and vitals were reviewed. RELEVANT PSYCHIATRIC MEDICATIONS: Risperdal 1 mg a.m. and bedtime, Paxil 10 mg at bedtime, Ativan 2 mg IV every 2 hours p.r.n. IMPRESSION: Schizophrenia, rule out schizoaffective disorder, opiate use disorder, opiate withdrawal, likely substance-induced mood disorder and substance-induced psychotic disorder have a contribution here, rule out contribution of delirium. RECOMMENDATIONS: The patient should be screened by [facility] once he is medically cleared. I discussed this recommendation by Dr. Mukherjee today, 06/22/2018. I will continue Paxil 10 mg at bedtime and I will increase Risperdal to 1 mg a.m. and 2 mg at bedtime with Cogentin 1 mg at bedtime for continued disorganized behavior. Again, the patient is not psychiatrically cleared and requires further evaluation by [facility] to determine if he meets criteria for involuntary commitment. In the meantime, Psychiatry will continue to follow up with the patient. Next followup will be on 06/23/[address] Rice. Juan Rice MD
[2018-06-23 08:44] LABS: BASO # 0.09 K/mm3 (0.0-2.0); BASO % 1.6 % (0.0-3.0); EOS # 0.4 (0.0-0.7); EOS % 7.2 % (1.5-5.0); GRAN # 2.03 (1.4-6.5); HEMOGLOBIN 12.9 g/dL (14.0-18.0); LYMPH # 2.8 (1.2-3.4); LYMPH % 47.9 % (22.0-35.0); MEAN CELL VOLUME 89.2 fl (80.0-105.0); MEAN CORPUSCULAR HEMOGLOBIN 29.1 pg (25.0-35.0); MEAN CORPUSCULAR HGB CONC 32.7 g/dl (31.0-37.0); MONO # 0.5 (0.1-0.6); MONO % 8.3 % (1.0-6.0); RBC 4.43 10^6/uL (3.5-6.1); WHITE BLOOD COUNT 5.8 10^3/uL (4.5-11.0)
[2018-06-23 09:03] LABS: ALB/GLOB RATIO 1.5 (1.1-1.8); ALT/SGPT 25 U/L (7-56); AST/SGOT 33 U/L (17-59); BLOOD UREA NITROGEN 14 mg/dL (7-21); CALCIUM 9.5 mg/dL (8.4-10.5); GFR NON-AFRICAN AMERICAN > 60
[2018-06-23] MEDS: Nystatin 100,000 Units/gm Cream(15 gm) TOP SCH (10:05)
--- NOTE | 2018-06-23 13:22 | PCM.EEG ---
Electroencephalogram Report - Electroencephalogram Report Procedure Date: 06/22/18 Medication: Benztropine, Risperdal, Famotidine. Interpretation: li Technical Information: This was a 16 -channel EEG, 1-channel EKG routine EEG performed using an [employer] machine. Electrodes were applied using the 10/20 international placement system. Start; 17;04 End; 17;49 Total 45 min Clinical Information: seizures During resting wakefulness there was a symmetric posterior dominant rhythm at 8.5-9.5 Hz, 30-50 uV, which was reactive to eye opening and closing. Drowsiness (17;39) was associated with fragmentation of the posterior dominant rhythm and with slow roving eye movements. Hyperventilation was performed and there were no changes on the record. Photic stimulation was performed and there were no changes on the record. Focal abnormality; none ECG was associated with a normal sinus rhythm. Impression: This is a normal awake and drowsy electroencephalogram.
--- NOTE | 2018-06-23 15:53 | CP.PCM.DIS ---
Provider - Provider Date of Admission: 06/21/18 18:03 Attending physician: Mago Fernandez MD Primary care physician: Tera Phelps MD Consults: 06/21/18 19:57 Psychiatry Consult Routine Comment: Consulting Provider: Juan Rice Consulting Physician: Juan Rice Reason for Consult: heroin overdose, hx of schizophrenia 06/22/18 08:34 Neurology Consult Routine Comment: Consulting Provider: Lilly Natarajan Consulting Physician: Lilly Natarajan Reason for Consult: Drug-induced seizure Time Spent in preparation of Discharge (in minutes): 45 Diagnosis - Discharge Diagnosis (1) Heroin abuse Status: Chronic (2) Hx of major depression Status: Chronic (3) Hx of schizophrenia Status: Chronic (4) Seizure Status: Resolved Hospital Course - Lab Results Lab Results: Most Recent Lab Values WBC 5.8 10^3/uL (4.5-11.0) 06/23/18 08:40 RBC 4.43 10^6/uL (3.5-6.1) 06/23/18 08:40 Hgb 12.9 g/dL (14.0-18.0) L 06/23/18 08:40 Hct 39.5 % (42.0-52.0) L 06/23/18 08:40 MCV 89.2 fl (80.0-105.0) 06/23/18 08:40 MCH 29.1 pg (25.0-35.0) 06/23/18 08:40 MCHC 32.7 g/dl (31.0-37.0) 06/23/18 08:40 RDW 14.0 % (11.5-14.5) 06/23/18 08:40 Plt Count 241 10^3/uL (120.0-450.0) 06/23/18 08:40 MPV 9.0 fl (7.0-11.0) 06/23/18 08:40 Gran % 35.0 % (50.0-68.0) L 06/23/18 08:40 Lymph % (Auto) 47.9 % (22.0-35.0) H 06/23/18 08:40 [place] % (Auto) 8.3 % (1.0-6.0) H 06/23/18 08:40 Eos % (Auto) 7.2 % (1.5-5.0) H 06/23/18 08:40 Baso % (Auto) 1.6 % (0.0-3.0) 06/23/18 08:40 Gran # 2.03 (1.4-6.5) 06/23/18 08:40 Lymph # (Auto) 2.8 (1.2-3.4) 06/23/18 08:40 [place] # (Auto) 0.5 (0.1-0.6) 06/23/18 08:40 Eos # (Auto) 0.4 (0.0-0.7) 06/23/18 08:40 Baso # (Auto) 0.09 K/mm3 (0.0-2.0) 06/23/18 08:40 PT 11.4 SECONDS (9.4-12.5) 06/21/18 16:33 INR 1.00 06/21/18 16:33 APTT 33.4 Seconds (25.1-36.5) 06/21/18 16:33 Sodium 137 mmol/L (132-148) 06/23/18 08:40 Potassium 4.3 mmol/L (3.6-5.0) 06/23/18 08:40 Chloride 104 mmol/L (98-107) 06/23/18 08:40 Carbon Dioxide 28 mmol/L (21-33) 06/23/18 08:40 Anion Gap 10 (10-20) 06/23/18 08:40 BUN 14 mg/dL (7-21) 06/23/18 08:40 Creatinine 0.8 mg/dl (0.8-1.5) 06/23/18 08:40 Est GFR ( Amer) > 60 06/23/18 08:40 Est GFR (Non-Af Amer) > 60 06/23/18 08:40 Random Glucose 96 mg/dL (70-110) 06/23/18 08:40 Calcium 9.5 mg/dL (8.4-10.5) 06/23/18 08:40 Phosphorus 5.7 mg/dL (2.5-4.5) H 06/22/18 05:30 Magnesium 2.1 mg/dL (1.7-2.2) 06/22/18 05:30 Total Bilirubin 0.6 mg/dL (0.2-1.3) 06/23/18 08:40 AST 33 U/L (17-59) 06/23/18 08:40 ALT 25 U/L (7-56) 06/23/18 08:40 Alkaline Phosphatase 50 U/L (38-126) 06/23/18 08:40 Lactate Dehydrogenase 572 U/L (333-699) 06/21/18 16:33 Total Creatine Kinase 208 U/L (35-230) 06/21/18 20:58 Troponin I < 0.01 ng/mL 06/21/18 16:33 Total Protein 6.8 g/dL (5.8-8.3) 06/23/18 08:40 Albumin 4.0 g/dL (3.0-4.8) 06/23/18 08:40 Globulin 2.8 gm/dL 06/23/18 08:40 Albumin/Globulin Ratio 1.5 (1.1-1.8) 06/23/18 08:40 Urine Color Yellow (YELLOW) 06/21/18 17:15 Urine Appearance Clear (CLEAR) 06/21/18 17:15 Urine pH 7.0 (4.7-8.0) 06/21/18 17:15 Ur Specific [place] 1.025 (1.005-1.035) 06/21/18 17:15 Urine Protein Negative mg/dL (<30 mg/dL) 06/21/18 17:15 Urine Glucose (UA) Negative mg/dL (NEGATIVE) 06/21/18 17:15 Urine Ketones Negative mg/dL (NEGATIVE) 06/21/18 17:15 Urine Blood Negative (NEGATIVE) 06/21/18 17:15 Urine Nitrate Negative (NEGATIVE) 06/21/18 17:15 Urine Bilirubin Negative (NEGATIVE) 06/21/18 17:15 Urine Urobilinogen 0.2 E.U./dL (<1 E.U./dL) 06/21/18 17:15 Ur Leukocyte Esterase Negative [place]/uL (NEGATIVE) 06/21/18 17:15 Salicylates < 1 mg/dL (2.0-20.0) L 06/21/18 16:33 Urine Opiates Screen Positive (NEGATIVE) H 06/21/18 17:15 Urine Methadone Screen Negative (NEGATIVE) 06/21/18 17:15 Acetaminophen < 10.0 ug/ml (10.0-20.0) L 06/21/18 16:33 Ur Barbiturates Screen Negative (NEGATIVE) 06/21/18 17:15 Ur Phencyclidine Scrn Negative (NEGATIVE) 06/21/18 17:15 Ur Amphetamines Screen Negative (NEGATIVE) 06/21/18 17:15 U Benzodiazepines Scrn Negative (NEGATIVE) 06/21/18 17:15 U Oth Cocaine Metabols Negative (NEGATIVE) 06/21/18 17:15 U Cannabinoids Screen Negative (NEGATIVE) 06/21/18 17:15 Alcohol, Quantitative < 10 mg/dL (0-10) 06/21/18 16:33 HIV 1&2 Ag/Ab, 4th Gen Nonreactive (Nonreactive) 06/21/18 20:58 - Hospital Course Hospital Course: HPI at time of admission: "This is a 27 year old male with PMH of depression, schizophrenia and polysubstance abuse presenting to the ER s/p PREVENTATIVE MAINTENANCE TECHNICIAN for generalized tonic clonic seizures while patient was in the psych unit. Patient was initially evaluated in the hospital on 06/18/18 after being found unresponsive in the field and noted have multiples bags of heroin in his jacket. He was subsequently taken to the ED and given narcan while en route. Since being admitted to the psych unit, there have been no reported seizures. During the PREVENTATIVE MAINTENANCE TECHNICIAN today, patient noted to be unre sponsive, generalized tonic clonic movements of the limbs, miotic pupils and no witnessed urinary/fecal incontinence or tongue biting. He was given 2mg ativan IM and taken to the ED where he received narcan. He then became arousable and noted to be confused with no recollection of the event. He admits to snorting two bags of heroin prior to seizure episode today while on 5B and does not admit to how he received the drugs. He denies ever having seizures in the past. He denies IV drug use. He denies CP, SOB, headaches, fevers, nausea, vomiting, back pain, abdominal pain, suicidal ideations, command hallucinations, numbness, tingling, swelling and urinary complaints. 12 point ROS noted here, otherwise unremarkable." Hospital Course: Pertinent imaging: CT head 06/21: negative CXR 06/21: increased pulmonary markings b/l can be seen w/ acute viral syndrome and/or reactive airway disease. EEG 06/22: normal EKG in ED: sinus tachy at [address] changes Pt was admitted for observation s/p seizure, likely 2/2 heroin abuse. Neurology (Dr. Natarajan) was consulted, who recommended EEG, stated that pt did not need to be on antiepileptic medications at this time. Psych (Dr. Rice) was consulted, who placed pt on psych med regimen and denied admission to psych floor. [facility] also came to screen pt for involuntary admission, and deemed pt was not a candidate for their facility. Pt was discharged to home on 06/23/18. Was given resources regarding rehab centers for detoxification from social work, pt was sent home to stay with his mother until rehab placement confirmed. Given scripts for Paxil, Risperdal, and Benztropine on discharge. Instructed to f/u with PMD Dr. Phelps within 3-5 days of hospital d/c. Instructed to f/u with psychiatrist Dr. Hanson within 3-5 days of hospital d/c. Instructed to abstain from alcohol, heroin, and other illegal drug use. For further details of hospital admission, please refer to hospital EMR. Discharge Exam - Head Exam Head Exam: ATRAUMATIC, NORMOCEPHALIC - Eye Exam Eye Exam: EOMI, Normal appearance, PERRL - ENT Exam ENT Exam: Mucous Membranes Moist - Respiratory Exam Respiratory Exam: Clear to PA & Lateral, NORMAL BREATHING PATTERN, UNREMARKABLE. absent: Rales, Rhonchi, Wheezes - Cardiovascular Exam Cardiovascular Exam: REGULAR RHYTHM, +S1, +S2. absent: Gallop, Rubs, Systolic Murmur - GI/Abdominal Exam GI & Abdominal Exam: Normal Bowel Sounds, Soft, Unremarkable. absent: Distended, Organomegaly, Rebound, Tenderness - Extremities Exam Extremities exam: full ROM, normal capillary refill, normal inspection, pedal pulses present - Psychiatric Exam Psychiatric exam: Flat Affect - Skin Skin Exam: Dry, Intact, Normal Color, Warm Discharge Plan - Discharge Medications Prescriptions: Benztropine [Cogentin] 1 mg PO HS #7 tab PARoxetine [Paxil] 10 mg PO HS #7 tab risperiDONE [RisperDAL Tab] 1 mg PO AMHS #14 tab risperiDONE [RisperDAL Tab] 2 mg PO HS #7 tab - Follow Up Plan Condition: GUARDED Disposition: HOME/ ROUTINE Instructions: Seizures, Adult (DC), Drug Abuse and Drug Addiction (DC), Schizophrenia (DC), Narcotic Overdose (DC) Additional Instructions: Please follow with your primary medical doctor (Dr. Phelps) within 3-5 days of discharge. Please follow up with your psychiatrist Dr. Hanson within 3-5 days of hospital discharge. You have been given resources for rehab centers in your area, they will contact you if you have been accepted to their facility. Please abstain from alcohol, heroin, and other illegal drug use. You have been given scripts for psychiatric medications. Please take as prescribed. Please have refilled within 1 week from your primary psychiatrist. 1. Paxil 10 mg oral daily at bedtime 2. Risperdal 1 mg oral take twice daily 3. Risperdal 2 mg oral take once daily at bedtime 4. Benztropine 1 mg take once daily at bedtime Should your symptoms worsen, please call your primary care physician or report to your nearest emergency department. Referrals: Ever Bey MD [Medical Doctor] - Tera Phelps MD [Primary Care Provider] -
--- NOTE | 2018-06-23 23:28 | CON ---
DATE: 06/23/2018 HISTORY OF PRESENT ILLNESS: The patient is a 27-year-old [place] male residing with his mother diagnosed with schizophrenia, who was admitted to Psychiatry unit after he was transported to the emergency room, status post overdose on opiates. The patient was transferred. The patient was seen by this provider on the psychiatric unit on 06/21/2018 and then shortly thereafter, he was placed on 48-hour notice and then few hours after that, he had a tonic-clonic seizure related to illicit use of heroin on the psychiatric unit. I attempt to see the patient yesterday; however, he refused to speak with me on the medical floor. I saw him today and apparently the patient has been cleared by [facility]. The patient is a little bit more responsive today. He denies any suicidal thoughts, homicidal thoughts, or hallucinations. He is aware of what year and month it is and what location he is in and he knows circumstances of current medical admission. The patient refuses to sign voluntarily back into the psychiatric unit and refuses to involuntarily commit him, the patient asked to be discharged once he is medically cleared from the medical floor. RELEVANT PSYCHIATRIC MEDICATIONS: Include Risperdal 1 mg a.m. and at bedtime, Paxil 10 at bedtime, and Ativan p.r.n. IMPRESSION: Rule out schizoaffective disorder, positive opiate use disorder, opiate withdrawal, substance-induced mood disorder, substance-induced psychotic disorder likely has a contribution, rule out contribution of delirium, improving. RECOMMENDATIONS: The patient should be discharged once he is medically cleared. The patient refuses to sign involuntarily to . In the meantime, the patient should be prescribed for Risperdal 1 mg and 2 a.m. and at bedtime and Paxil 10 mg at bedtime last week. The patient is aware that disposition arrangements cannot be provided for him if he is wanting to be discharged against medical advice and still would like to be discharged today. Juan Rice MD
--- NOTE | 2018-06-23 23:39 | CP.PCM.PN ---
Subjective - Date & Time of Evaluation Date of Evaluation: 06/25/18 Time of Evaluation: 07:10 - Subjective Subjective: Patient seen and examined at bedside in no acute distress. No complaints or seizures overnight. Objective - Vital Signs/Intake and Output Vital Signs (last 24 hours): Temp Pulse Resp BP Pulse Ox 97.8 F 71 18 103/74 98 06/23/18 08:14 06/23/18 08:14 06/23/18 08:14 06/23/18 08:14 06/23/18 08:14 - Labs Labs: 06/23/18 08:40 06/23/18 08:40 PT 11.4 SECONDS (9.4-12.5) 06/21/18 16:33 INR 1.00 06/21/18 16:33 APTT 33.4 Seconds (25.1-36.5) 06/21/18 16:33 - Constitutional Appears: Non-toxic, No Acute Distress - Head Exam Head Exam: ATRAUMATIC, NORMAL INSPECTION, NORMOCEPHALIC - Eye Exam Eye Exam: EOMI, Normal appearance - Respiratory Exam Respiratory Exam: Clear to Ausculation Bilateral, NORMAL BREATHING PATTERN - Cardiovascular Exam Cardiovascular Exam: REGULAR RHYTHM, +S1, +S2 - GI/Abdominal Exam GI & Abdominal Exam: Soft, Normal Bowel Sounds - Extremities Exam Extremities Exam: Full ROM - Neurological Exam Neurological Exam: Alert, Awake, CN II-XII Intact, Oriented x3 - Psychiatric Exam Psychiatric exam: Normal Affect, Normal Mood - Skin Skin Exam: Normal Color, Warm Assessment and Plan - Assessment and Plan (Free Text) Assessment: 27 yr old male with known seizures secondary to heroin use -Recommend rehabilitation for patient to help him abstain from heroin use as it is a very addictive drug and he cannot quit on his own; patient will need professional help -EEG normal; seizure secondary to heroin use -Discussed in great detail with both patient and mom regarding rehab placement and effect heroin has on the brain
== END 2018-06-23 13:50 | disposition home or self-care (01) | DRG 897 ==
LOC: ED 16:30 → ERH 18:03 → 3RNO 21:36
PROVIDERS: ADMIT Internal Medicine; ATTEND Internal Medicine
DX: F11.10 Opioid abuse, uncomplicated (principal); G40.409 Other generalized epilepsy and epileptic syndromes, not intractable, without status epilepticus; F20.9 Schizophrenia, unspecified; F12.90 Cannabis use, unspecified, uncomplicated; F14.90 Cocaine use, unspecified, uncomplicated; Z91.14 Patient's other noncompliance with medication regimen

== ENCOUNTER 2018-06-25 16:51 | Emergency (ER) | payer MEDICAID, OTHER ==
[2018-06-25 16:52] VITALS: BMI 14.9
[2018-06-25 18:36] VITALS: TEMP 98.3
[2018-06-25 19:10] LABS: BASO # 0.07 K/mm3 (0.0-2.0); BASO % 0.6 % (0.0-3.0); EOS # 0.1 (0.0-0.7); EOS % 0.4 % (1.5-5.0); GRAN # 9.68 (1.4-6.5); GRAN % 77.2 % (50.0-68.0); HEMOGLOBIN 12.8 g/dL (14.0-18.0); LYMPH % 16.1 % (22.0-35.0); MEAN CELL VOLUME 88.6 fl (80.0-105.0); MEAN CORPUSCULAR HEMOGLOBIN 28.5 pg (25.0-35.0); MEAN CORPUSCULAR HGB CONC 32.2 g/dl (31.0-37.0); MEAN PLATELET VOLUME 9.5 fl (7.0-11.0); MONO # 0.7 (0.1-0.6); MONO % 5.7 % (1.0-6.0); RBC 4.49 10^6/uL (3.5-6.1); RED CELL DISTRIBUTION WIDTH 14.1 % (11.5-14.5); WHITE BLOOD COUNT 12.5 10^3/uL (4.5-11.0)
[2018-06-25 19:14] LABS: PARTIAL THROMBOPLASTIN TIME 32.3 Seconds (25.1-36.5); PROTHROMBIN TIME 11.4 SECONDS (9.4-12.5)
[2018-06-25 19:15] LABS: ACETAMINOPHEN < 10.0 ug/ml (10.0-20.0); SALICYLATE < 1 mg/dL (2.0-20.0)
--- NOTE | 2018-06-25 19:17 | ED PDOC ---
Arrival/HPI - General Chief Complaint: Substance Abuse Time Seen by Provider: 06/25/18 17:04 Historian: EMS - History of Present Illness Narrative History of Present Illness (Text): 06/25/18 19:13 27yo male with history of drug abuse bib EMS after he was found on the street unconscious. Per EMS patient became AAO x3 after getting 2 dose of Narcain intranasally. In emergency department patient refused to answer any question. H e was however AAO x3 and does not appear in any distress. Past Medical History - Provider Review Nursing Documentation Reviewed: Yes - Infectious Disease Hx of Infectious Diseases: None - Cardiac Hx Hypertension: Yes (mother suffers from HBP) - Pulmonary Hx Respiratory Disorders: Yes (smoker) - Neurological Hx Neurological Disorder: Yes Other/Comment: seizure-like activity today on psych unit - HEENT Hx HEENT Disorder: No - Renal Hx Renal Disorder: No - Endocrine/Metabolic Hx Endocrine Disorders: No - Hematological/Oncological Hx Blood Disorders: Yes (vitamin d deficiency) Hx Cancer: No - Integumentary Hx Dermatological Disorder: Yes (multiple tatoos) - Musculoskeletal/Rheumatological Hx Musculoskeletal Disorders: No Hx Falls: No - Gastrointestinal Hx Gastrointestinal Disorders: No - Genitourinary/Gynecological Hx Genitourinary Disorders: No Hx Sexually Transmitted Diseases: No - Psychiatric Hx Psychophysiologic Disorder: Yes Hx Depression: Yes (hx of suicidal ideation) Hx Schizophrenia: Yes Hx Substance Use: Yes (heroin/pot "since high school") Other/Comment: opiate drug use heroin and marijuana "since high school" pt stated, community resource use - Anesthesia Hx Anesthesia: No Family/Social History - Physician Review Nursing Documentation Reviewed: Yes Family/Social History: Unknown Family HX Smoking Status: Light Smoker < 10 Cigarettes Daily Hx Alcohol Use: No Hx Substance Use: Yes (heroin/pot "since high school") Substance used: heroin Allergies/Home Meds Allergies/Adverse Reactions: Allergies No Known Allergies Allergy (Verified 06/25/18 17:08) Review of Systems - Physician Review All systems were reviewed & negative as marked: Yes - Review of Systems Systems not reviewed;Unavailable: Uncooperative Physical Exam Vital Signs Reviewed: Yes Vital Signs Temp Pulse Resp BP Pulse Ox 06/25/18 16:52 98.3 F 78 18 100/70 98 Temperature: Afebrile Blood Pressure: Normal Pulse: Regular Respiratory Rate: Normal Appearance: Positive for: Well-Appearing, Non-Toxic, Comfortable Pain Distress: None Mental Status: Positive for: Alert and Oriented X 3 - Systems Exam Head: Present: Atraumatic, Normocephalic Pupils: Present: PERRL Extroacular Muscles: Present: EOMI Conjunctiva: Present: Normal Mouth: Present: Moist Mucous Membranes Neck: Present: Normal Range of Motion Respiratory/Chest: Present: Clear to Auscultation, Good Air Exchange. No: Respiratory Distress, Accessory Muscle Use Cardiovascular: Present: Regular Rate and Rhythm, Normal S1, S2. No: Murmurs Abdomen: No: Tenderness, Distention, Peritoneal Signs Back: Present: Normal Inspection Upper Extremity: Present: Normal Inspection. No: Cyanosis, Edema Lower Extremity: Present: Normal Inspection. No: Edema Neurological: Present: GCS=15, CN II-XII Intact, Speech Normal Skin: Present: Warm, Dry, Normal Color. No: Rashes Psychiatric: Present: Alert, Oriented x 3, Normal Insight, Normal Concentration Medical Decision Making ED Course and Treatment: 06/25/18 21:58 Pt bib EMS for drug abuse. He was AAO x3 on presentation to emergency department . He refused to answer questions while in emergency department . He was however hemodynamically stable. Per the RN, pt was found with Marijuana in emergency department . She notified [facility]. [facility] came to emergency department and placed pt under arrest. Labs was reviewed and pt was medically cleared for incarceration Case was ANGELINA Bazan who DC with Dr. Rice and she cleared pt psychiatrically for incarceration. Disposition/Present on Arrival - Present on Arrival Any Indicators Present on Arrival: No History of DVT/PE: No History of Uncontrolled Diabetes: No Urinary Catheter: No History of Decub. Ulcer: No History Surgical Site Infection Following: None - Disposition Have Diagnosis and Disposition been Completed?: Yes Diagnosis: Overdose Disposition: HOME/ ROUTINE Disposition Time: 21:10 Patient Plan: Discharge Patient Problems: Current Active Problems Problem Status Onset Overdose Acute Condition: STABLE Discharge Instructions (ExitCare): Polysubstance Abuse Additional Instructions: Stop using drugs Join a Detox Follow up with psychiatrist in [facility] Return to emergency department for any new symptoms Patient is medically and psychiatrically cleared for incarceration Referrals: [employer] Kimani Vieyra, [Primary Care Provider] - Follow up with primary Dari Saucedo MD [Medical Doctor] - Follow up with primary Forms: [employer] (Irish)
[2018-06-25 19:25] LABS: ALB/GLOB RATIO 1.5 (1.1-1.8); ALBUMIN 4.4 g/dL (3.0-4.8); ALT/SGPT 38 U/L (7-56); AST/SGOT 27 U/L (17-59); BLOOD UREA NITROGEN 12 mg/dL (7-21); CALCIUM 9.3 mg/dL (8.4-10.5); GFR NON-AFRICAN AMERICAN > 60
[2018-06-25 20:17] LABS: PH,URINE 6.5 (4.7-8.0); URINE BILIRUBIN NEGATIVE (NEGATIVE); URINE BLOOD NEGATIVE (NEGATIVE); URINE GLUCOSE (UA) NEGATIVE (NEGATIVE); URINE LEUKOCYTE ESTERASE NEGATIVE Leu/uL (NEGATIVE); URINE PROTEIN NEGATIVE mg/dL (<30 mg/dL); URINE UROBILINOGEN 0.2 E.U./dL (<1 E.U./dL)
[2018-06-25 20:26] LABS: URINE APPEARANCE CLEAR (CLEAR); URINE COLOR YELLOW (YELLOW)
[2018-06-25 22:13] LABS: BARBITURATES, UR NEGATIVE (NEGATIVE); BENZODIAZEPINES, UR NEGATIVE (NEGATIVE); OPIATES, UR POSITIVE (NEGATIVE); PHENCYCLIDINE, UR NEGATIVE (NEGATIVE)
[2018-06-26 04:21] VITALS: PULSE 74; O2SAT 99
[2018-06-26 04:22] VITALS: BP 118/76; RESP 16
--- NOTE | 2018-06-26 09:22 | CARD ---
APPROVED REPORT Date of service: 06/25/2018 EKG Measurement Heart [id number] <Conclusion> Normal sinus rhythm with sinus arrhythmia Rightward axis
--- NOTE | 2018-06-26 13:11 | PCM.EEG ---
Electroencephalogram Report - Electroencephalogram Report Procedure Date: 06/23/18 Condition of Recording: Awake, Drowsy Interpretation: There was a 9 hz posterior dominant rhythm that is reactive symmetric and attenuates with eye opening. Normal amount of beta was seen in the frontal leads bilaterally. THere was no sleep noted. Impression: This is a normal awake and drowsy EEG.
== END 2018-06-25 23:00 | disposition home or self-care (01) ==
LOC: ED 16:51
DX: T65.91XA Toxic effect of unspecified substance, accidental (unintentional), initial encounter (principal); R40.20 Unspecified coma; Y92.410 Unspecified street and highway as the place of occurrence of the external cause; F17.210 Nicotine dependence, cigarettes, uncomplicated; I10 Essential (primary) hypertension; Z82.49 Family history of ischemic heart disease and other diseases of the circulatory system

== ENCOUNTER 2018-07-18 12:41 | Emergency (ER) | payer OTHER ==
[2018-07-18 12:58] VITALS: BMI 19.5
[2018-07-18 13:06] VITALS: O2SAT 98
--- NOTE | 2018-07-18 13:13 | ED PDOC ---
Arrival/HPI - General Chief Complaint: Substance Abuse Time Seen by Provider: 07/18/18 12:52 Historian: Patient, EMS EM Caveat: Intoxicated (overdose) - History of Present Illness Narrative History of Present Illness (Text): 07/18/18 13:13 A 27 year old male, whose past medical history includes drug abuse, presents to the emergency department brought in by EMS for a heroin overdose. EMS reports patient was found unconscious in his home and was administered narcan. Per EMS, patient responded to narcan and vomited once. Patient denies any current pain, SI, or any other complaints. HPI and ROS are limited due to patient's condition. No PMD Time/Duration: Other (earlier today) Symptom Onset: Gradual Symptom Course: Unchanged Activities at Onset: Light Context: Home Past Medical History - Provider Review Nursing Documentation Reviewed: Yes - Infectious Disease Hx of Infectious Diseases: None - Cardiac Hx Hypertension: Yes (mother suffers from HBP) - Pulmonary Hx Respiratory Disorders: Yes (smoker) - Neurological Hx Neurological Disorder: Yes Other/Comment: seizure-like activity today on psych unit - HEENT Hx HEENT Disorder: No - Renal Hx Renal Disorder: No - Endocrine/Metabolic Hx Endocrine Disorders: No - Hematological/Oncological Hx Blood Disorders: Yes (vitamin d deficiency) Hx Cancer: No - Integumentary Hx Dermatological Disorder: Yes (multiple tatoos) - Musculoskeletal/Rheumatological Hx Musculoskeletal Disorders: No Hx Falls: No - Gastrointestinal Hx Gastrointestinal Disorders: No - Genitourinary/Gynecological Hx Genitourinary Disorders: No Hx Sexually Transmitted Diseases: No - Psychiatric Hx Psychophysiologic Disorder: Yes Hx Depression: Yes (hx of suicidal ideation) Hx Schizophrenia: Yes Hx Substance Use: Yes (heroin/pot "since high school") Other/Comment: opiate drug use heroin and marijuana "since high school" pt stated, community resource use - Anesthesia Hx Anesthesia: No Family/Social History - Physician Review Nursing Documentation Reviewed: Yes Family/Social History: No Known Family HX Smoking Status: Light Smoker < 10 Cigarettes Daily Hx Alcohol Use: No Hx Substance Use: Yes (heroin/pot "since high school") Substance used: heroin Allergies/Home Meds Allergies/Adverse Reactions: Allergies No Known Allergies Allergy (Verified 06/25/18 17:08) Review of Systems - Review of Systems Systems not reviewed;Unavailable: Intoxicated (overdose) Psychiatric: absent: Suicidal Ideation Physical Exam - Physical Exam Narrative Physical Exam (Text): 07/18/18 13:14 Constitutional: No acute distress. Drowsy. Head: Normocephalic. Atraumatic. Eyes: Pinpoint pupils. ENT: Moist mucous membranes. Neck: Supple. Cardiovascular: Regular rate. Chest: No tenderness. Respiratory: Breathing spontaneously. GI: Soft. Nontender. Nondistended. Back: No CVA tenderness. Musculoskeletal: No tenderness or swelling of extremities. Skin: No rash. Neurologic: Alert, no focal deficit. Vital Signs Reviewed: Yes Vital Signs Temp Pulse Resp BP Pulse Ox 07/18/18 12:41 98.1 F 98 H 13 113/78 98 Temperature: Afebrile Blood Pressure: Normal Pulse: Tachycardic Respiratory Rate: Normal Medical Decision Making ED Course and Treatment: 07/18/18 13:14 Impression: 27 year old male presenting to the emergency department for overdose . Plan: -- EKG -- Zofran -- Reassess and disposition Prior Visits: Notes and results from previous visits were reviewed. Progress Notes: Will observe for sobriety prior to discharge, at least 3 hours. - Scribe Statement The provider has reviewed the documentation as recorded by the Alycia Winslow All medical record entries made by the Sherriibshira were at my direction and personally dictated by me. I have reviewed the chart and agree that the record accurately reflects my personal performance of the history, physical exam, medical decision making, and the department course for this patient. I have also personally directed, reviewed, and agree with the discharge instructions and disposition. Disposition/Present on Arrival - Present on Arrival Any Indicators Present on Arrival: No History of DVT/PE: No History of Uncontrolled Diabetes: No Urinary Catheter: No History of Decub. Ulcer: No History Surgical Site Infection Following: None - Disposition Have Diagnosis and Disposition been Completed?: Yes Diagnosis: Heroin abuse Disposition: HOME/ ROUTINE Disposition Time: 13:48 Patient Plan: Discharge Condition: STABLE Discharge Instructions (ExitCare): Opioid Use Disorder Forms: [employer] (Kyrgyz)
[2018-07-18 16:22] VITALS: RESP 18
[2018-07-18 16:24] VITALS: BP 119/84; PULSE 89; TEMP 98
--- NOTE | 2018-07-18 23:18 | CARD ---
APPROVED REPORT Date of service: 07/18/2018 EKG Measurement Heart [id number] <Conclusion> Normal sinus rhythm Possible Left atrial enlargement Borderline ECG
== END 2018-07-18 16:23 | disposition home or self-care (01) ==
LOC: ED 12:41
DX: F11.10 Opioid abuse, uncomplicated (principal); F17.210 Nicotine dependence, cigarettes, uncomplicated; Z82.49 Family history of ischemic heart disease and other diseases of the circulatory system